=== PATIENT | male | born 1940 | race Caucasian/White ===

== ENCOUNTER 2024-10-25 10:15 | Inpatient (IN) | payer MEDICARE ==
--- NOTE | 2024-10-25 10:33 | ED ---
SOB HPI - General Chief Complaint: Shortness of Breath Stated Complaint: CHUCK,Dark stool Time Seen by Provider: 10/25/24 10:25 Source: patient, family, RN notes reviewed, old records reviewed Mode of arrival: wheelchair Limitations: no limitations - History of Present Illness Initial Comments: This is an 84-year-old male to ER for evaluation patient diagnosed with pneumonia concern for blood in the stool. Dark stools tarry stools with concern for coagulopathy. Patient does complain of shortness of breath with cough and congestion hypoxic on arrival to the emergency department today. Patient was accepted in transfer MD Complaint: shortness of breath, cough -: days(s) Severity: severe Severity scale (1-10): 9 Consistency: constant Improves With: nothing Worsens With: nothing Known History Of: COPD, congestive heart failure, recurrent pneumonia Context: recent URI, recent illness Associated Symptoms: chest pain, cough, sputum production Treatments Prior to Arrival: oxygen - Related Data Home Medications Medication Instructions Recorded Confirmed Amoxicillin 2,000 mg PO ONCE PRN 10/25/24 10/25/24 Atorvastatin [Lipitor] 20 mg PO SUMOTUTHFRSA 10/25/24 10/25/24 Colchicine 0.6 mg PO DAILY PRN 10/25/24 10/25/24 Hydrocortisone Cream 1 applic TOPICAL BID PRN 10/25/24 10/25/24 [Hydrocortisone 2.5% Cream] Ketoconazole 2% Cream [Nizoral 2%] 1 applic TOPICAL DAILY PRN 10/25/24 10/25/24 Multivit-Min/FA/Lycopen/Lutein 1 tab PO DIRECTED 10/25/24 10/25/24 [Centrum Silver Tablet] allopurinoL 300 mg PO DIRECTED 10/25/24 10/25/24 lisinopriL [Zestril] 5 mg PO DIRECTED PRN 10/25/24 10/25/24 Previous Rx's Medication Instructions Recorded Warfarin [Coumadin] 2.5 mg PO SUMOTUTHFRSA #0 10/29/24 Allergies Allergy/AdvReac Type Severity Reaction Status Date / Time No Known Allergies Allergy Verified 10/25/24 13:18 Review of Systems ROS Statement: Those systems with pertinent positive or pertinent negative responses have been documented in the HPI. ROS Other: All systems not noted in ROS Statement are negative. Past Medical History Past Psychological History: No Psychological Hx Reported Smoking Status: Former smoker Past Alcohol Use History: Occasional Past Drug Use History: None Reported General Exam Limitations: no limitations General appearance: alert, in no apparent distress Head exam: Present: atraumatic, normocephalic, normal inspection Eye exam: Present: normal appearance, PERRL, EOMI. Absent: scleral icterus, conjunctival injection, periorbital swelling ENT exam: Present: normal exam, mucous membranes moist Neck exam: Present: normal inspection. Absent: tenderness, meningismus, lymphadenopathy Respiratory exam: Present: normal lung sounds bilaterally. Absent: respiratory distress, wheezes, rales, rhonchi, stridor Cardiovascular Exam: Present: regular rate, normal rhythm, normal heart sounds. Absent: systolic murmur, diastolic murmur, rubs, gallop, clicks GI/Abdominal exam: Present: soft, normal bowel sounds. Absent: distended, tenderness, guarding, rebound, rigid Extremities exam: Present: normal inspection, full ROM, normal capillary refill. Absent: tenderness, pedal edema, joint swelling, calf tenderness Back exam: Present: normal inspection Neurological exam: Present: alert, oriented X3, CN II-XII intact Psychiatric exam: Present: normal affect, normal mood Skin exam: Present: warm, dry, intact, normal color. Absent: rash Course Vital Signs 10/25/24 10/25/24 10/25/24 10:18 10:35 12:00 Temperature 99.1 F Pulse Rate 118 H 90 Respiratory 20 20 18 Rate Blood Pressure 131/78 123/69 O2 Sat by Pulse 88 L 92 L Oximetry 10/25/24 10/25/24 10/25/24 12:43 12:52 13:39 Temperature Pulse Rate 80 84 84 Respiratory 18 Rate Blood Pressure 117/69 O2 Sat by Pulse 90 L Oximetry 10/25/24 10/25/24 10/25/24 16:00 16:49 16:57 Temperature Pulse Rate 64 62 64 Respiratory 20 Rate Blood Pressure 115/71 O2 Sat by Pulse 90 L Oximetry 10/25/24 10/25/24 10/25/24 17:00 18:00 20:00 Temperature Pulse Rate 71 95 65 Respiratory 22 21 20 Rate Blood Pressure 101/71 98/59 107/68 O2 Sat by Pulse 90 L 90 L 93 L Oximetry 10/25/24 10/25/24 10/25/24 20:48 20:59 21:00 Temperature Pulse Rate 62 77 80 Respiratory 19 Rate Blood Pressure 105/70 O2 Sat by Pulse 95 Oximetry 10/25/24 10/26/24 10/26/24 22:00 00:00 02:00 Temperature Pulse Rate 90 82 81 Respiratory 17 19 19 Rate Blood Pressure 99/64 100/71 100/71 O2 Sat by Pulse 90 L 92 L 92 L Oximetry 10/26/24 10/26/24 10/26/24 03:00 04:00 04:35 Temperature Pulse Rate 68 70 64 Respiratory 22 14 16 Rate Blood Pressure 94/68 110/74 120/66 O2 Sat by Pulse 92 L 87 L 95 Oximetry 10/26/24 10/26/24 10/26/24 05:00 05:52 06:00 Temperature Pulse Rate 63 63 67 Respiratory 16 16 15 Rate Blood Pressure 120/66 109/70 109/70 O2 Sat by Pulse 92 L 94 L 91 L Oximetry 10/26/24 10/26/24 10/26/24 06:52 07:00 08:00 Temperature 98.6 F Pulse Rate 68 82 64 Respiratory 16 10 L 19 Rate Blood Pressure 112/69 112/69 110/71 O2 Sat by Pulse 95 94 L 93 L Oximetry 10/26/24 10/26/24 10/26/24 08:33 08:39 08:45 Temperature Pulse Rate 72 71 76 Respiratory 16 14 16 Rate Blood Pressure 106/65 O2 Sat by Pulse 97 Oximetry 10/26/24 10/26/24 10/26/24 09:00 10:00 10:27 Temperature Pulse Rate 101 H 68 76 Respiratory 23 19 15 Rate Blood Pressure 106/65 103/70 110/64 O2 Sat by Pulse 90 L 92 L Oximetry 10/26/24 10/26/24 10/26/24 11:00 12:00 12:09 Temperature Pulse Rate 96 76 71 Respiratory 23 16 16 Rate Blood Pressure 110/64 132/89 O2 Sat by Pulse 93 L 92 L Oximetry 10/26/24 10/26/24 10/26/24 12:19 13:00 14:00 Temperature Pulse Rate 77 101 H 93 Respiratory 16 17 19 Rate Blood Pressure 104/64 108/70 O2 Sat by Pulse 91 L 93 L Oximetry 10/26/24 10/26/24 10/26/24 15:00 15:38 15:46 Temperature Pulse Rate 72 74 77 Respiratory 18 16 16 Rate Blood Pressure 91/70 O2 Sat by Pulse 94 L Oximetry 10/26/24 10/26/24 10/26/24 16:00 17:00 18:00 Temperature Pulse Rate 75 77 Respiratory 20 20 Rate Blood Pressure 105/62 118/79 111/66 O2 Sat by Pulse 92 L 95 Oximetry 10/26/24 10/26/24 10/26/24 20:03 20:17 20:45 Temperature Pulse Rate 69 90 90 Respiratory 20 Rate Blood Pressure 121/59 O2 Sat by Pulse 94 L Oximetry 10/27/24 10/27/24 10/27/24 01:30 06:29 08:48 Temperature 97.9 F Pulse Rate 100 97 93 Respiratory 18 18 16 Rate Blood Pressure 113/74 115/68 143/88 O2 Sat by Pulse 94 L 94 L 92 L Oximetry - Reevaluation(s) Reevaluation #1: Medical records reviewed Reevaluation #2: Patient symptoms unchanged here in the ER Reevaluation #3: Patient informed of results and questions answered Reevaluation #4: Was pt. sent in by a medical professional or institution (, PA, CHOIR TEACHER, urgent care, hospital, or custodial...) When possible be specific @ -no Did you speak to anyone other than the patient for history (EMS, parent, family, police, friend...)? What history was obtained from this source @ -no Did you review nursing and triage notes (agree or disagree)? Why? @ -agree Are old charts reviewed (outside hosp., previous admission, EMS record, old EKG, old radiological studies, urgent care reports/EKG's, custodial records)? Report findings @ -yes Differential Diagnosis (chest pain, altered mental status, abdominal pain women, abdominal pain men, vaginal bleeding, weakness, fever, dyspnea, syncope, headache, dizziness, GI bleed, back pain, seizure, CVA, palpatations, mental health, musculoskeletal)? @ -prior EKG interpreted by me (3pts min.). @ -yes X-rays interpreted by me (1pt min.). @ -yes positive for multifocal pneumonia CT interpreted by me (1pt min.). @ -no U/S interpreted by me (1pt. min.). @ -no What testing was considered but not performed or refused? (CT, X-rays, U/S, labs)? Why? @ -none What meds were considered but not given or refused? Why? @ -none Did you discuss the management of the patient with other professionals (professionals i.e. , PA, CHOIR TEACHER, lab, RT, psych nurse, medical social consultant, private investigator surveillance, teacher, chief security officer, caseworker)? Give summary @ -no Was smoking cessation discussed for >3mins.? @ -no Was critical care preformed (if so, how long)? @ -yes31 Were there social determinants of health that impacted care today? How? (Homelessness, low income, unemployed, alcoholism, drug addiction, transportation, low edu. Level, literacy, decrease access to med. care, alf, rehab)? @ -none Was there de-escalation of care discussed even if they declined (Discuss DNR or withdrawal of care, Hospice)? DNR status @ -no What co-morbidities impacted this encounter? (DM, HTN, Smoking, COPD, CAD, Cancer, CVA, ARF, Chemo, Hep., AIDS, mental health diagnosis, sleep apnea, morbid obesity)? @ -none Was patient admitted / discharged? Hospital course, mention meds given and route, prescriptions, significant lab abnormalities, going to OR and other pertinent info. @ - 84 female to ER with shortness of breath coagulopathy and suspect GI bleed patient has multifocal pneumonia and hypoxia here in the emergency department placed on antibiotics will admit for significant supportive care Admitted Undiagnosed new problem with uncertain prognosis? @ -no Drug Therapy requiring intensive monitoring for toxicity (Heparin, Nitro, Insulin, Cardizem)? @ -no Were any procedures done? @ -no Diagnosis/symptom? @ -Pneumonia hypoxia coagulopathy with blood in the stool Acute, or Chronic, or Acute on Chronic? @ -Acute Uncomplicated (without systemic symptoms) or Complicated (systemic symptoms)? @ -Complicated Side effects of treatment? @ -no Exacerbation, Progression, or Severe Exacerbation? @ -exacerbation Poses a threat to life or bodily function? How? (Chest pain, USA, MA, pneumonia, PE, COPD, DKA, ARF, appy, cholecystitis, CVA, Diverticulitis, Homicidal, Suicidal, threat to staff... and all critical care pts) @ -yes extremes of age Reevaluation #5: Differential Dyspnea: Coronary syndrome, arrhythmia, tamponade, asthma, COPD, pulmonary embolism, p neumonia, pneumothorax, pulmonary effusion, anaphylaxis, diabetic ketoacidosis, flailed chest, pulmonary contusion, diaphragmatic rupture, anemia, neuromuscular, this is not meant to be an all-inclusive list. - Consultations Consultation #1: Spoke with many physicians who agreed to admit this patient Medical Decision Making - Medical Decision Making 84 female to ER with shortness of breath coagulopathy and suspect GI bleed patient has multifocal pneumonia and hypoxia here in the emergency department placed on antibiotics will admit for significant supportive care - Lab Data Result diagrams: 10/29/24 06:15 10/29/24 06:15 Lab Results 10/25/24 10/25/24 10/25/24 Range/Units 10:47 10:47 10:47 WBC 9.9 (3.8-10.6) k/uL RBC 5.19 (4.30-5.90) m/uL Hgb 16.0 (13.0-17.5) gm/dL Hct 47.6 (39.0-53.0) % MCV 91.8 (80.0-100.0) fL MCH 30.8 (25.0-35.0) pg MCHC 33.6 (31.0-37.0) g/dL RDW 14.1 (11.5-15.5) % Plt Count 239 (150-450) k/uL MPV 8.8 Neutrophils % 90 % Lymphocytes % 5 % Monocytes % 4 % Eosinophils % 0 % Basophils % 0 % Neutrophils # 8.9 H (1.3-7.7) k/uL Lymphocytes # 0.5 L (1.0-4.8) k/uL Monocytes # 0.4 (0-1.0) k/uL Eosinophils # 0.0 (0-0.7) k/uL Basophils # 0.0 (0-0.2) k/uL PT >130.0 H (10.0-12.5) sec INR >10.0 H* (<1.2) APTT 68.5 H (22.0-30.0) sec Sodium 133 L (137-145) mmol/L Potassium 5.5 H (3.5-5.1) mmol/L Chloride 94 L (98-107) mmol/L Carbon Dioxide 21 L (22-30) mmol/L Anion Gap 18 mmol/L BUN 28 H (9-20) mg/dL Creatinine 1.79 H (0.66-1.25) mg/dL Est GFR (CKD-EPI)AfAm 40 (>60 ml/min/1.73 sqM) Est GFR (CKD-EPI)NonAf 35 (>60 ml/min/1.73 sqM) Glucose 186 H (74-99) mg/dL Lactic Ac Sepsis Rflx Plasma Lactic Acid Gil (0.7-2.0) mmol/L Calcium 9.7 (8.4-10.2) mg/dL Magnesium 2.2 (1.6-2.3) mg/dL Total Bilirubin 1.0 (0.2-1.3) mg/dL AST 83 H (17-59) U/L ALT 62 H (4-49) U/L Alkaline Phosphatase 104 (38-126) U/L Troponin I (0.000-0.034) ng/mL NT-Pro-B Natriuret Pep 1200 pg/mL Total Protein 9.1 H (6.3-8.2) g/dL Albumin 4.5 (3.5-5.0) g/dL Influenza Type A (PCR) (Not Detectd) Influenza Type B (PCR) (Not Detectd) RSV (PCR) (Not Detectd) SARS-CoV-2 (PCR) (Not Detectd) 10/25/24 10/25/24 10/25/24 Range/Units 10:47 10:47 11:39 WBC (3.8-10.6) k/uL RBC (4.30-5.90) m/uL Hgb (13.0-17.5) gm/dL Hct (39.0-53.0) % MCV (80.0-100.0) fL MCH (25.0-35.0) pg MCHC (31.0-37.0) g/dL RDW (11.5-15.5) % Plt Count (150-450) k/uL MPV Neutrophils % % Lymphocytes % % Monocytes % % Eosinophils % % Basophils % % Neutrophils # (1.3-7.7) k/uL Lymphocytes # (1.0-4.8) k/uL Monocytes # (0-1.0) k/uL Eosinophils # (0-0.7) k/uL Basophils # (0-0.2) k/uL PT (10.0-12.5) sec INR (<1.2) APTT (22.0-30.0) sec Sodium (137-145) mmol/L Potassium (3.5-5.1) mmol/L Chloride (98-107) mmol/L Carbon Dioxide (22-30) mmol/L Anion Gap mmol/L BUN (9-20) mg/dL Creatinine (0.66-1.25) mg/dL Est GFR (CKD-EPI)AfAm (>60 ml/min/1.73 sqM) Est GFR (CKD-EPI)NonAf (>60 ml/min/1.73 sqM) Glucose (74-99) mg/dL Lactic Ac Sepsis Rflx Plasma Lactic Acid Gil 3.2 H* (0.7-2.0) mmol/L Calcium (8.4-10.2) mg/dL Magnesium (1.6-2.3) mg/dL Total Bilirubin (0.2-1.3) mg/dL AST (17-59) U/L ALT (4-49) U/L Alkaline Phosphatase (38-126) U/L Troponin I 0.183 H* (0.000-0.034) ng/mL NT-Pro-B Natriuret Pep pg/mL Total Protein (6.3-8.2) g/dL Albumin (3.5-5.0) g/dL Influenza Type A (PCR) Not Detected (Not Detectd) Influenza Type B (PCR) Not Detected (Not Detectd) RSV (PCR) Not Detected (Not Detectd) SARS-CoV-2 (PCR) Not Detected (Not Detectd) 10/25/24 Range/Units 11:50 WBC (3.8-10.6) k/uL RBC (4.30-5.90) m/uL Hgb (13.0-17.5) gm/dL Hct (39.0-53.0) % MCV (80.0-100.0) fL MCH (25.0-35.0) pg MCHC (31.0-37.0) g/dL RDW (11.5-15.5) % Plt Count (150-450) k/uL MPV Neutrophils % % Lymphocytes % % Monocytes % % Eosinophils % % Basophils % % Neutrophils # (1.3-7.7) k/uL Lymphocytes # (1.0-4.8) k/uL Monocytes # (0-1.0) k/uL Eosinophils # (0-0.7) k/uL Basophils # (0-0.2) k/uL PT (10.0-12.5) sec INR (<1.2) APTT (22.0-30.0) sec Sodium (137-145) mmol/L Potassium (3.5-5.1) mmol/L Chloride (98-107) mmol/L Carbon Dioxide (22-30) mmol/L Anion Gap mmol/L BUN (9-20) mg/dL Creatinine (0.66-1.25) mg/dL Est GFR (CKD-EPI)AfAm (>60 ml/min/1.73 sqM) Est GFR (CKD-EPI)NonAf (>60 ml/min/1.73 sqM) Glucose (74-99) mg/dL Lactic Ac Sepsis Rflx Y Plasma Lactic Acid Gil (0.7-2.0) mmol/L Calcium (8.4-10.2) mg/dL Magnesium (1.6-2.3) mg/dL Total Bilirubin (0.2-1.3) mg/dL AST (17-59) U/L ALT (4-49) U/L Alkaline Phosphatase (38-126) U/L Troponin I (0.000-0.034) ng/mL NT-Pro-B Natriuret Pep pg/mL Total Protein (6.3-8.2) g/dL Albumin (3.5-5.0) g/dL Influenza Type A (PCR) (Not Detectd) Influenza Type B (PCR) (Not Detectd) RSV (PCR) (Not Detectd) SARS-CoV-2 (PCR) (Not Detectd) - EKG Data -: EKG Interpreted by Me (EKG is tachycardic 114 NV 69 QRS 134 QTc C3 93) - Radiology Data Radiology results: report reviewed (Chest x-ray is positive for bilateral pneumonia), image reviewed Critical Care Time Critical Care Time: Yes Total Critical Care Time: 31 Disposition Clinical Impression: Acute exacerbation of chronic obstructive pulmonary disease, Coagulopathy, GI bleed, Pneumonia, Hypoxia, Bilateral pneumonia, Acute respiratory distress syndrome in adult, Acute pulmonary edema Disposition: ADMITTED IP TO THIS HOSP Condition: Serious Is patient prescribed a controlled substance at d/c from ED?: No Time of Disposition: 12:20
[2024-10-25 11:07] LABS: Basophils % (A) 0 %; Eosinophils % (A) 0 %; HCT 47.6 % (39.0-53.0); Lymphocytes # (A) 0.5 k/uL (1.0-4.8); Lymphocytes % (A) 5 %; MCH 30.8 pg (25.0-35.0); MCHC 33.6 g/dL (31.0-37.0); MCV 91.8 fL (80.0-100.0); Mean Platelet Volume 8.8; Monocytes # (A) 0.4 k/uL (0-1.0); Monocytes % (A) 4 %; Neutrophils # (A) 8.9 k/uL (1.3-7.7); Neutrophils % (A) 90 %; Platelet Count 239 k/uL (150-450); RBC 5.19 m/uL (4.30-5.90); RDW 14.1 % (11.5-15.5); WBC 9.9 k/uL (3.8-10.6)
--- NOTE | 2024-10-25 11:07 | XR ---
EXAMINATION TYPE: XR chest 1V portable DATE OF EXAM: 10/25/2024 10:57 AM COMPARISON: None TECHNIQUE: XR chest 1V portable Portable AP radiograph of the chest. CLINICAL INDICATION:Male, 83 years old with history of sob; FINDINGS: Lungs/Pleura: No pleural effusion or pneumothorax. Bilateral perihilar reticular opacities. Pulmonary vascularity: Unremarkable. Heart/mediastinum: Cardiomediastinal silhouette is unremarkable. Atherosclerotic calcifications are seen in the aorta. Musculoskeletal: No acute osseous pathology. Bilateral shoulder arthropathy. IMPRESSION: Bilateral perihilar reticular opacities concerning for pneumonia. [facility], , 10/25/2024 11:05 AM
[2024-10-25 11:34] LABS: NT-Pro-B-Type Natriuretic Pept 1200 pg/mL
[2024-10-25 11:43] LABS: ALT 62 U/L (4-49); AST 83 U/L (17-59); African American GFR (CKD) 40 (>60 ml/min/1.73 sqM); Albumin 4.5 g/dL (3.5-5.0); Alkaline Phosphatase 104 U/L (38-126); Anion Gap 18 mmol/L; Blood Urea Nitrogen 28 mg/dL (9-20); Calcium 9.7 mg/dL (8.4-10.2); Carbon Dioxide 21 mmol/L (22-30); Chloride 94 mmol/L (98-107); Glucose 186 mg/dL (74-99); Magnesium 2.2 mg/dL (1.6-2.3); Non-African American GFR(CKD) 35 (>60 ml/min/1.73 sqM); Potassium 5.5 mmol/L (3.5-5.1); Sodium 133 mmol/L (137-145); Total Protein 9.1 g/dL (6.3-8.2)
[2024-10-25 12:04] LABS: Prothrombin Time >130.0 sec (10.0-12.5)
[2024-10-25 12:06] LABS: INR >10.0 (<1.2); Partial Thromboplastin Time 68.5 sec (22.0-30.0)
[2024-10-25] MEDS ORDERED: PNEUMONIA PROTOCOL UTILIZED 1 EACH MISC PO PRN (12:20)
[2024-10-25] MEDS ORDERED: MORPHINE SULFATE 4 MG/ML SYRINGE IV PRN (12:20)
[2024-10-25] MEDS ORDERED: ALBUTEROL NEBULIZED 2.5 MG/3 ML INHALATION PRN (12:20)
[2024-10-25] MEDS ORDERED: NALOXONE 0.4 MG/ML 1 ML VIAL IV PRN (12:20)
[2024-10-25] MEDS ORDERED: ONDANSETRON 4 MG/2 ML VIAL IVP PRN (12:20)
[2024-10-25] MEDS: IPRATROPIUM-ALBUTEROL 3 ML NEB INHALATION STA ×2 (12:40→16:47)
[2024-10-25] MEDS: SODIUM CHLORIDE 0.9% 1,000 ML IV SCH (12:51)
[2024-10-25 13:06] LABS: Basophils % (A) 0 %; Eosinophils % (A) 0 %; HCT 40.7 % (39.0-53.0); HGB 13.9 gm/dL (13.0-17.5); Lymphocytes # (A) 0.7 k/uL (1.0-4.8); Lymphocytes % (A) 6 %; MCH 31.2 pg (25.0-35.0); MCHC 34.1 g/dL (31.0-37.0); MCV 91.5 fL (80.0-100.0); Monocytes # (A) 0.3 k/uL (0-1.0); Monocytes % (A) 3 %; Neutrophils # (A) 10.1 k/uL (1.3-7.7); Neutrophils % (A) 89 %; Platelet Count 244 k/uL (150-450); RBC 4.45 m/uL (4.30-5.90); RDW 13.7 % (11.5-15.5); WBC 11.4 k/uL (3.8-10.6)
[2024-10-25] MEDS: AZITHROMYCIN 500 MG in SODIUM CHLORIDE 0.9% 250 ML IVPB STA (13:37)
[2024-10-25] MEDS: PHYTONADIONE ORAL 5 MG/5 ML ORAL.SYRG PO STA (15:16)
[2024-10-25] MEDS: IPRATROPIUM-ALBUTEROL 3 ML NEB INHALATION SCH (16:47)
[2024-10-26 06:29] LABS: Basophils % (A) 0 %; Eosinophils % (A) 0 %; HCT 39.4 % (39.0-53.0); HGB 12.9 gm/dL (13.0-17.5); Lymphocytes # (A) 0.8 k/uL (1.0-4.8); Lymphocytes % (A) 8 %; MCH 29.9 pg (25.0-35.0); MCHC 32.6 g/dL (31.0-37.0); MCV 91.7 fL (80.0-100.0); Mean Platelet Volume 7.8; Monocytes # (A) 0.3 k/uL (0-1.0); Monocytes % (A) 3 %; Neutrophils # (A) 8.8 k/uL (1.3-7.7); Neutrophils % (A) 87 %; Platelet Count 224 k/uL (150-450); RDW 13.9 % (11.5-15.5); WBC 10.1 k/uL (3.8-10.6)
[2024-10-26 06:53] LABS: ALT 65 U/L (4-49); AST 124 U/L (17-59); African American GFR (CKD) 70 (>60 ml/min/1.73 sqM); Albumin 3.1 g/dL (3.5-5.0); Alkaline Phosphatase 75 U/L (38-126); Anion Gap 11 mmol/L; Blood Urea Nitrogen 32 mg/dL (9-20); Calcium 8.4 mg/dL (8.4-10.2); Carbon Dioxide 24 mmol/L (22-30); Chloride 101 mmol/L (98-107); Glucose 123 mg/dL (74-99); Magnesium 2.4 mg/dL (1.6-2.3); Non-African American GFR(CKD) 60 (>60 ml/min/1.73 sqM); Phosphorus 4.4 mg/dL (2.5-4.5); Potassium 4.2 mmol/L (3.5-5.1); Sodium 136 mmol/L (137-145); Total Bilirubin 0.7 mg/dL (0.2-1.3); Total Protein 6.3 g/dL (6.3-8.2)
--- NOTE | 2024-10-26 07:50 | XR ---
EXAMINATION TYPE: XR chest 1V portable DATE OF EXAM: 10/26/2024 4:13 AM COMPARISON: 10/25/2024 CLINICAL INDICATION: Male, 83 years old with history of pneumonia, TECHNIQUE: XR chest 1V portable view(s) obtained. FINDINGS: The heart size is normal. The pulmonary vasculature is normal. Mild infiltrate is present through the left perihilar region. Findings appear slightly worsened. Millie elate for pneumonia. No significant change in the right perihilar appearance. Advanced degenerative changes are at the right shoulder IMPRESSION: 1. Worsening left perihilar infiltrate. Correlate for pneumonia. Continued follow-up is recommended [facility], , 10/26/2024 7:47 AM
[2024-10-26] MEDS: PANTOPRAZOLE 40 MG/10 ML VIAL IVP SCH (10:56)
[2024-10-26] MEDS: AZITHROMYCIN 500 MG in SODIUM CHLORIDE 0.9% 250 ML IVPB SCH (11:02)
[2024-10-26 11:29] LABS: INR 4.3 (<1.2); Prothrombin Time 42.3 sec (10.0-12.5)
--- NOTE | 2024-10-26 11:36 | P.CRDCN ---
History of Present Illness Consult date: 10/26/24 History of present illness: History of Present Illness: The patient is an 83-year-old male with a history of borderline hypertension who presented with diarrhea, black stool and symptoms of dyspnea. In the emergency room he was found to have an INR above 10, minimally elevated troponin and cardiology consultation was requested. He is usually active physically, has no exertional chest discomfort or significant dyspnea. He recently fell while shoveling snow and since that time he has been dyspneic with some symptoms of respiratory infection. For the last 3 days he noted black stool with diarrhea. He has been maintained on Coumadin for over 10 years. Initially he had DVT post knee surgery, was anticoagulated at that time but had recurrent DVT afterward and has been maintained on Coumadin, typically his INR is between 2 and 3 and has been stable. He has not taking any antibiotics recently. He has a history of hypertension but at times it is on the low side and does not require taking his lisinopril. He has no chest discomfort except after the fall, chest wall tenderness. He has no history of peripheral edema, PND or orthopnea. He denies any dizziness or palpitations. He has no history of documented obstructive CAD or CHF in the past. He is a non-smoker, stopped 22 years ago, he is prediabetic and hyperlipidemic. Medications: Lisinopril 5 mg daily, warfarin, atorvastatin 20 mg daily, colchicine Review of Systems: Respiratory: He had a recent dyspnea and cough GI: He has no abdominal pain or nausea and vomiting but he had black stool di arrhea : No hematuria or dysuria. Nervous System: No stroke or seizure. Physical Examination: 83-year-old male, alert oriented no apparent distress,Blood pressure 110/60, Heart rate 76 Head: Normocephalic. Eyes: Sclerae nonicteric. Neck: Good carotid upstroke, no bruit, no jugular venous distention. Lungs: Clear to auscultation. Heart: Regular rate and rhythm, S1-S2, no S3, no rub. No murmur. Abdomen: Soft nontender, positive bowel sounds no organomegaly. Extremities: No edema, intact distal pulses. Labs: On presentation INR above 10, potassium 5.5, BUN 28 and creatinine 1.79. Today his potassium is 4.2, BUN 32 and creatinine 1.14. His hemoglobin on admission was 16, down to 12.9 this morning. AST 124, ALT 65. His chest x-ray is suggestive of pneumonia with perihilar infiltrates. Troponin 0.183 with NT proBNP of 1200. EKG: Sinus mechanism with PACs, right bundle branch block Impression: 1. Probable pneumonia with abnormal chest x-ray. 2. Hypercoagulation 3. GI bleed 4. Acute renal injury, resolved. 5. Mild troponin elevation could be related to the acute renal injury and pneumonia 6. Prior history of DVT, anticoagulated 7. History of hyperlipidemia 8. History of hypertension Plan: 1. The patient received vitamin K, will follow his INR 2. Follow hemoglobin and renal function closely 3. Obtain an echocardiogram with Doppler 4. Repeat liver functions tomorrow and if stable reinitiate statin 5. Treatment of his lung infection per pulmonary service 6. Once stable may require further cardiac workup 7. Depending on his progress further recommendations will be made, thank you for this consult we will follow with you. Past Medical History Past Psychological History: No Psychological Hx Reported Smoking Status: Former smoker Past Alcohol Use History: Occasional Past Drug Use History: None Reported Medications and Allergies Home Medications Medication Instructions Recorded Confirmed Type Amoxicillin 2,000 mg PO ONCE PRN 10/25/24 10/25/24 History Atorvastatin [Lipitor] 20 mg PO SUMOTUTHFRSA 10/25/24 10/25/24 History Colchicine 0.6 mg PO DAILY PRN 10/25/24 10/25/24 History Hydrocortisone Cream 1 applic TOPICAL BID PRN 10/25/24 10/25/24 History [Hydrocortisone 2.5% Cream] Ketoconazole 2% Cream [Nizoral 2%] 1 applic TOPICAL DAILY PRN 10/25/24 10/25/24 History Multivit-Min/FA/Lycopen/Lutein 1 tab PO DIRECTED 10/25/24 10/25/24 History [Centrum Silver Tablet] Warfarin [Coumadin] 2.5 mg PO SUMOTUTHFRSA 10/25/24 10/25/24 History allopurinoL 300 mg PO DIRECTED 10/25/24 10/25/24 History lisinopriL [Zestril] 5 mg PO DIRECTED PRN 10/25/24 10/25/24 History Allergies Allergy/AdvReac Type Severity Reaction Status Date / Time No Known Allergies Allergy Verified 10/25/24 13:18 Physical Exam Vitals: Vital Signs Temp Pulse Resp BP Pulse Ox 10/26/24 10:27 76 15 110/64 10/26/24 08:45 76 16 10/26/24 08:39 71 14 106/65 10/26/24 08:33 72 16 97 10/26/24 06:52 98.6 F 68 16 112/69 95 10/26/24 05:52 63 16 109/70 94 L 10/26/24 04:35 64 16 120/66 95 10/26/24 00:00 82 19 100/71 92 L 10/25/24 22:00 90 17 99/64 90 L 10/25/24 21:00 80 19 105/70 95 10/25/24 20:59 77 10/25/24 20:48 62 10/25/24 20:00 65 20 107/68 93 L 10/25/24 18:00 95 21 98/59 90 L 10/25/24 17:00 71 22 101/71 90 L 10/25/24 16:57 64 10/25/24 16:49 62 10/25/24 16:00 64 20 115/71 90 L 10/25/24 13:39 84 18 117/69 90 L 10/25/24 12:52 84 10/25/24 12:43 80 10/25/24 12:00 90 18 123/69 92 L Results 10/26/24 06:10 10/26/24 06:10 Cardiac Enzymes 10/25/24 10/25/24 10/26/24 Range/Units 10:47 10:47 06:10 AST 83 H 124 H (17-59) U/L Troponin I 0.183 H* (0.000-0.034) ng/mL Coagulation 10/25/24 Range/Units 10:47 PT >130.0 H (10.0-12.5) sec APTT 68.5 H (22.0-30.0) sec CBC 10/25/24 10/26/24 Range/Units 12:56 06:10 WBC 11.4 H 10.1 (3.8-10.6) k/uL RBC 4.45 4.30 (4.30-5.90) m/uL Hgb 13.9 12.9 L (13.0-17.5) gm/dL Hct 40.7 39.4 (39.0-53.0) % Plt Count 244 224 (150-450) k/uL Comprehensive Metabolic Panel 10/25/24 10/26/24 Range/Units 10:47 06:10 Sodium 133 L 136 L (137-145) mmol/L Potassium 5.5 H 4.2 (3.5-5.1) mmol/L Chloride 94 L 101 (98-107) mmol/L Carbon Dioxide 21 L 24 (22-30) mmol/L BUN 28 H 32 H (9-20) mg/dL Creatinine 1.79 H 1.14 (0.66-1.25) mg/dL Glucose 186 H 123 H (74-99) mg/dL Calcium 9.7 8.4 (8.4-10.2) mg/dL AST 83 H 124 H (17-59) U/L ALT 62 H 65 H (4-49) U/L Alkaline Phosphatase 104 75 (38-126) U/L Total Protein 9.1 H 6.3 (6.3-8.2) g/dL Albumin 4.5 3.1 L (3.5-5.0) g/dL Current Medications Generic Name Dose Route Start Last Admin Trade Name Freq PRN Reason Stop Dose Admin Albuterol Sulfate 2.5 mg 10/25/24 12:20 Albuterol Nebulized 2.5 Mg/3 Ml INHALATION RT-Q4H PRN Shortness Of Breath Or Wheezing Albuterol/Ipratropium 3 ml 10/25/24 16:00 10/26/24 08:33 Ipratropium-Albuterol 3 Ml Neb INHALATION 3 ml RT-QID HUAN Administration Sodium Chloride 1,000 mls @ 20 mls/hr 10/25/24 12:30 10/25/24 12:51 Saline 0.9% IV 20 mls/hr .Q24H HUAN Administration Ceftriaxone Sodium 2 gm/ 50 mls @ 100 mls/hr 10/26/24 09:00 10/26/24 08:37 Sodium Chloride IVPB 10/29/24 09:29 100 mls/hr Q24HR HUAN Administration Protocol Azithromycin 500 mg/ Sodium 250 mls @ 250 mls/hr 10/26/24 12:00 10/26/24 11:02 Chloride IVPB 10/27/24 12:59 250 mls/hr DAILY@1200 HUAN Administration Protocol Miscellaneous Information 1 each 10/25/24 12:20 Pneumonia Protocol Utilized 1 Each Misc PO ONCE PRN Per Protocol Morphine Sulfate 4 mg 10/25/24 12:20 Morphine Sulfate 4 Mg/Ml Syringe IV Q4HR PRN Severe Pain (Scale 7 to 10) Naloxone HCl 0.2 mg 10/25/24 12:20 Naloxone 0.4 Mg/Ml 1 Ml Vial IV Q2M PRN Opioid Reversal Ondansetron HCl 4 mg 10/25/24 12:20 Ondansetron 4 Mg/2 Ml Vial IVP Q8HR PRN Nausea And Vomiting Pantoprazole Sodium 40 mg 10/26/24 10:45 10/26/24 10:56 Pantoprazole 40 Mg/10 Ml Vial IVP 40 mg DAILY HUAN Administration 10/26/24 06:10 10/26/24 06:10
--- NOTE | 2024-10-26 15:12 | P.HPIM ---
History of Present Illness H&P Date: 10/26/24 History of present illness; patient 83-year-old gentleman with past medical history significant for hyperlipidemia, COPD, right lower extremity DVT who presented to ER for shortness of breath and dark stools. Patient stated he was all right couple of days back when started noticing increasing shortness of breath. Shortness of breath was present on rest as on exertion. Patient also complaining of dark stools, there was no complaint of nausea vomiting abdominal pain. There is no acute hematemesis. Patient currently takes Coumadin. Because of shortness of breath, patient went to urgent care from where he was referred to the ER Initial lab work done in the ER showed WBC 9.9, hemoglobin 16, platelet count 239, INR greater than 10, sodium 133, potassium 5.5, BUN 20, creatinine 1.79 lactate 3.2 troponin 0.183 AST 83 ALT 62 Influenza A not detected Influenza B not detected RSV not detected COVID-19 not detected EKG done in the ER showed heart rate of 114, no ST segment elevation or depre ssion seen, no T-wave inversions seen. Chest x-ray done in the ER showed bilateral perihilar reticular opacities concerning for pneumonia Patient admitted to internal medicine service REVIEW OF SYSTEMS: CONSTITUTIONAL: No fever, no malaise, no fatigue. HEENT: No recent visual problems or hearing problems. Denied any sore throat. CARDIOVASCULAR: As mentioned above PULMONARY: As mentioned above GASTROINTESTINAL: No diarrhea, no nausea, no vomiting, no abdominal pain. NEUROLOGICAL: No headaches, no weakness, no numbness. HEMATOLOGICAL: Denies any bleeding or petechiae. GENITOURINARY: Denies any burning micturition, frequency, or urgency. MUSCULOSKELETAL/RHEUMATOLOGICAL: Denies any joint pain, swelling, or any muscle pain. ENDOCRINE: Denies any polyuria or polydipsia. The rest of the 14-point review of systems is negative. PHYSICAL EXAMINATION: GENERAL: The patient is alert and oriented x3, not in any acute distress. Well developed, well nourished. HEENT: Pupils are round and equally reacting to light. EOMI. No scleral icterus. No conjunctival pallor. Normocephalic, atraumatic. No pharyngeal erythema. No thyromegaly. CARDIOVASCULAR: S1 and S2 present. No murmurs, rubs, or gallops. PULMONARY: Chest is clear to auscultation, no wheezing or crackles. ABDOMEN: Soft, nontender, nondistended, normoactive bowel sounds. No palpable organomegaly. MUSCULOSKELETAL: No joint swelling or deformity. EXTREMITIES: No cyanosis, clubbing, or pedal edema. NEUROLOGICAL: Gross neurological examination did not reveal any focal deficits. SKIN: No rashes. Assessment and plan Bacterial pneumonia Acute COPD exacerbation Supratherapeutic INR GI bleed Hyponatremia Hyperkalemia Acute kidney injury Elevated troponin History of right lower extremity DVT Monitor vital signs Monitor CBC Monitor CMP Continue telemetry monitoring Serial troponin Strict I's and O's, daily weights Serial INRs patient received vitamin K in the ER. Ordered anemia workup Ordered FOBT Start IV Rocephin and azithromycin Start IV Protonix Consult cardiology Consult pulmonology Consult surgery. Labs and medication were reviewed.. Continue same treatment. Continue with symptomatic treatment. Resume home medication. Monitor labs and vitals. DVT and GI prophylaxis. Further recommendations as per clinical course of the patient Dictation was produced using [employer] dictation software. please excuse any grammatical, word or spelling errors. Past Medical History Past Psychological History: No Psychological Hx Reported Smoking Status: Former smoker Past Alcohol Use History: Occasional Past Drug Use History: None Reported Medications and Allergies Home Medications Medication Instructions Recorded Confirmed Type Amoxicillin 2,000 mg PO ONCE PRN 10/25/24 10/25/24 History Atorvastatin [Lipitor] 20 mg PO SUMOTUTHFR10/25/24 10/25/24 History Colchicine 0.6 mg PO DAILY PRN 10/25/24 10/25/24 History Hydrocortisone Cream 1 applic TOPICAL BID PRN 10/25/24 10/25/24 History [Hydrocortisone 2.5% Cream] Ketoconazole 2% Cream [Nizoral 2%] 1 applic TOPICAL DAILY PRN 10/25/24 10/25/24 History Multivit-Min/FA/Lycopen/Lutein 1 tab PO DIRECTED 10/25/24 10/25/24 History [Centrum Silver Tablet] Warfarin [Coumadin] 2.5 mg PO SUMOTUTHFRSA 10/25/24 10/25/24 History allopurinoL 300 mg PO DIRECTED 10/25/24 10/25/24 History lisinopriL [Zestril] 5 mg PO DIRECTED PRN 10/25/24 10/25/24 History Allergies Allergy/AdvReac Type Severity Reaction Status Date / Time No Known Allergies Allergy Verified 10/25/24 13:18 Physical Exam Vitals: Vital Signs Temp Pulse Resp BP Pulse Ox 10/26/24 10:27 76 15 110/64 10/26/24 08:45 76 16 10/26/24 08:39 71 14 106/65 10/26/24 08:33 72 16 97 10/26/24 06:52 98.6 F 68 16 112/69 95 10/26/24 05:52 63 16 109/70 94 L 10/26/24 04:35 64 16 120/66 95 10/26/24 00:00 82 19 100/71 92 L 10/25/24 22:00 90 17 99/64 90 L 10/25/24 21:00 80 19 105/70 95 10/25/24 20:59 77 10/25/24 20:48 62 10/25/24 20:00 65 20 107/68 93 L 10/25/24 18:00 95 21 98/59 90 L 10/25/24 17:00 71 22 101/71 90 L 10/25/24 16:57 64 10/25/24 16:49 62 10/25/24 16:00 64 20 115/71 90 L 10/25/24 13:39 84 18 117/69 90 L 10/25/24 12:52 84 10/25/24 12:43 80 10/25/24 12:00 90 18 123/69 92 L 10/25/24 10:35 20 Results CBC & Chem 7: 10/26/24 06:10 10/26/24 06:10 Labs: Abnormal Lab Results - Last 24 Hours (Table) 10/25/24 10/25/24 10/25/24 Range/Units 10:47 10:47 10:47 WBC (3.8-10.6) k/uL Hgb (13.0-17.5) gm/dL Neutrophils # 8.9 H (1.3-7.7) k/uL Lymphocytes # 0.5 L (1.0-4.8) k/uL PT >130.0 H (10.0-12.5) sec INR >10.0 H* (<1.2) APTT 68.5 H (22.0-30.0) sec Sodium 133 L (137-145) mmol/L Potassium 5.5 H (3.5-5.1) mmol/L Chloride 94 L (98-107) mmol/L Carbon Dioxide 21 L (22-30) mmol/L BUN 28 H (9-20) mg/dL Creatinine 1.79 H (0.66-1.25) mg/dL Glucose 186 H (74-99) mg/dL Plasma Lactic Acid Gil (0.7-2.0) mmol/L Magnesium (1.6-2.3) mg/dL AST 83 H (17-59) U/L ALT 62 H (4-49) U/L Troponin I (0.000-0.034) ng/mL Total Protein 9.1 H (6.3-8.2) g/dL Albumin (3.5-5.0) g/dL 10/25/24 10/25/24 10/25/24 Range/Units 10:47 10:47 12:56 WBC 11.4 H (3.8-10.6) k/uL Hgb (13.0-17.5) gm/dL Neutrophils # 10.1 H (1.3-7.7) k/uL Lymphocytes # 0.7 L (1.0-4.8) k/uL PT (10.0-12.5) sec INR (<1.2) APTT (22.0-30.0) sec Sodium (137-145) mmol/L Potassium (3.5-5.1) mmol/L Chloride (98-107) mmol/L Carbon Dioxide (22-30) mmol/L BUN (9-20) mg/dL Creatinine (0.66-1.25) mg/dL Glucose (74-99) mg/dL Plasma Lactic Acid Gil 3.2 H* (0.7-2.0) mmol/L Magnesium (1.6-2.3) mg/dL AST (17-59) U/L ALT (4-49) U/L Troponin I 0.183 H* (0.000-0.034) ng/mL Total Protein (6.3-8.2) g/dL Albumin (3.5-5.0) g/dL 12/31/24 12/31/24 Range/Units 06:10 06:10 WBC (3.8-10.6) k/uL Hgb 12.9 L (13.0-17.5) gm/dL Neutrophils # 8.8 H (1.3-7.7) k/uL Lymphocytes # 0.8 L (1.0-4.8) k/uL PT (10.0-12.5) sec INR (<1.2) APTT (22.0-30.0) sec Sodium 136 L (137-145) mmol/L Potassium (3.5-5.1) mmol/L Chloride (98-107) mmol/L Carbon Dioxide (22-30) mmol/L BUN 32 H (9-20) mg/dL Creatinine (0.66-1.25) mg/dL Glucose 123 H (74-99) mg/dL Plasma Lactic Acid Gil (0.7-2.0) mmol/L Magnesium 2.4 H (1.6-2.3) mg/dL AST 124 H (17-59) U/L ALT 65 H (4-49) U/L Troponin I (0.000-0.034) ng/mL Total Protein (6.3-8.2) g/dL Albumin 3.1 L (3.5-5.0) g/dL
--- NOTE | 2024-10-26 17:22 | P.CNPUL ---
History of Present Illness Consult date: 10/26/24 Requesting physician: Guero Sears Reason for consult: dyspnea, abnormal CXR/CT Chief complaint: General Weakness, congestion, diarrhea History of present illness: This is an 83-year-old male patient with a known history of hypertension, gout, hyperlipidemia, former smoker, right lower extremity DVT x 2 and maintained on warfarin. He presented here to the emergency room yesterday with complaints of shortness of breath and black liquidy stool. He had also developed generalized weakness. X-ray lateral perihilar reticular opacities. EKG reveals sinus rhythm with frequent PACs and a right bundle branch block. White count 10.1. Hemoglobin 12.9. Platelets 224. Sodium 136. Potassium 4.2. Bicarb 24. BUN 32. Creatinine 1.14. Glucose 123. AST 124. ALT 65. Troponin 0.200, 0.194. Procalcitonin 1.27. C-reactive protein 26.6. proBNP 1200. Viral screen negative. He is seen today in consultation in the emergency department. He is currently resting on a stretcher. Awake and alert in no acute distress. Maintaining O2 saturations in the 90s on 2 L/min per nasal cannula. He has been afebrile. Hemodynamically stable. Patient's presenting INR was greater than 10. He did receive vitamin K. Current INR 4.3. Review of Systems REVIEW OF SYSTEMS: CONSTITUTIONAL: Positive for generalized weakness. Denies any recent significant weight loss or weight gain. EYES: Denies change in vision. EARS, NOSE, MOUTH, THROAT: Denies headaches, denies sore throat. CARDIOVASCULAR: Denies chest pain, palpitations or syncopal episodes. RESPIRATORY: Positive for shortness of breath, no cough, congestion or hemoptysis. GASTROINTESTINAL: Positive for diarrhea with dark stool GENITOURINARY: Denies hematuria, denies infections. MUSKULOSKELETAL: Denies pain, denies swelling. INTEGUMENTARY: Denies rash, denies eczema. NEUROLOGICAL: Denies recent memory loss, no recent seizure activity. PSYCHIATRIC: Denies anxiety, denies depression. HEMATOLOGIC/LYMPHATIC: Denies anemia, denies enlarged lymph nodes. Past Medical History Past Psychological History: No Psychological Hx Reported Smoking Status: Former smoker Past Alcohol Use History: Occasional Past Drug Use History: None Reported Medications and Allergies Home Medications Medication Instructions Recorded Confirmed Type Amoxicillin 2,000 mg PO ONCE PRN 12/30/24 12/30/24 History Atorvastatin [Lipitor] 20 mg PO SUMOTUTHFRSA 10/25/24 10/25/24 History Colchicine 0.6 mg PO DAILY PRN 10/25/24 10/25/24 History Hydrocortisone Cream 1 applic TOPICAL BID PRN 10/25/24 10/25/24 History [Hydrocortisone 2.5% Cream] Ketoconazole 2% Cream [Nizoral 2%] 1 applic TOPICAL DAILY PRN 10/25/24 10/25/24 History Multivit-Min/FA/Lycopen/Lutein 1 tab PO DIRECTED 10/25/24 10/25/24 History [Centrum Silver Tablet] Warfarin [Coumadin] 2.5 mg PO SUMOTUTHFRSA 10/25/24 10/25/24 History allopurinoL 300 mg PO DIRECTED 10/25/24 10/25/24 History lisinopriL [Zestril] 5 mg PO DIRECTED PRN 10/25/24 10/25/24 History Allergies Allergy/AdvReac Type Severity Reaction Status Date / Time No Known Allergies Allergy Verified 10/25/24 13:18 Physical Exam Vitals: Vital Signs Temp Pulse Resp BP Pulse Ox 10/26/24 15:46 77 16 10/26/24 15:38 74 16 10/26/24 12:19 77 16 10/26/24 12:09 71 16 10/26/24 10:27 76 15 110/64 10/26/24 08:45 76 16 10/26/24 08:39 71 14 106/65 10/26/24 08:33 72 16 97 10/26/24 06:52 98.6 F 68 16 112/69 95 10/26/24 05:52 63 16 109/70 94 L 10/26/24 04:35 64 16 120/66 95 10/26/24 00:00 82 19 100/71 92 L 10/25/24 22:00 90 17 99/64 90 L 10/25/24 21:00 80 19 105/70 95 10/25/24 20:59 77 10/25/24 20:48 62 10/25/24 20:00 65 20 107/68 93 L 10/25/24 18:00 95 21 98/59 90 L GENERAL EXAM: Alert, pleasant 83-year-old male patient, on 2 L nasal cannula, fairly comfortable in no apparent distress. HEAD: Normocephalic. EYES: Normal reaction of pupils, equal size. NOSE: Clear with pink turbinates. THROAT: No erythema or exudates. NECK: No masses, no JVD. CHEST: No chest wall deformity. LUNGS: Equal air entry with few scattered rhonchi. CVS: S1 and S2 normal with no audible murmur, regular rhythm. ABDOMEN: No hepatosplenomegaly, normal bowel sounds, no guarding or rigidity. SPINE: No scoliosis or deformity SKIN: No rashes CENTRAL NERVOUS SYSTEM: No focal deficits, tone is normal in all 4 extremities. EXTREMITIES: There is no peripheral edema. No clubbing, no cyanosis. Peripheral pulses are intact. Results - Laboratory Findings CBC and BMP: 10/26/24 06:10 10/26/24 06:10 PT/INR, D-dimer PT 42.3 sec (10.0-12.5) H 10/26/24 11:00 INR 4.3 (<1.2) H 10/26/24 11:00 Abnormal lab findings: Abnormal Labs 10/25/24 10/25/24 10/25/24 10:47 10:47 10:47 WBC Hgb Neutrophils # 8.9 H Lymphocytes # 0.5 L ESR PT >130.0 H INR >10.0 H* APTT 68.5 H Sodium 133 L Potassium 5.5 H Chloride 94 L Carbon Dioxide 21 L BUN 28 H Creatinine 1.79 H Glucose 186 H Plasma Lactic Acid Gil Magnesium AST 83 H ALT 62 H Troponin I C-Reactive Protein Total Protein 9.1 H Albumin Procalcitonin 10/25/24 10/25/24 10/25/24 10:47 10:47 12:56 WBC 11.4 H Hgb Neutrophils # 10.1 H Lymphocytes # 0.7 L ESR PT INR APTT Sodium Potassium Chloride Carbon Dioxide BUN Creatinine Glucose Plasma Lactic Acid Gil 3.2 H* Magnesium AST ALT Troponin I 0.183 H* C-Reactive Protein Total Protein Albumin Procalcitonin 10/26/24 10/26/24 10/26/24 06:10 06:10 11:00 WBC Hgb 12.9 L Neutrophils # 8.8 H Lymphocytes # 0.8 L ESR PT 42.3 H INR 4.3 H APTT Sodium 136 L Potassium Chloride Carbon Dioxide BUN 32 H Creatinine Glucose 123 H Plasma Lactic Acid Gil Magnesium 2.4 H AST 124 H ALT 65 H Troponin I C-Reactive Protein Total Protein Albumin 3.1 L Procalcitonin 10/26/24 10/26/24 10/26/24 11:00 11:00 11:00 WBC Hgb Neutrophils # Lymphocytes # ESR 81 H PT INR APTT Sodium Potassium Chloride Carbon Dioxide BUN Creatinine Glucose Plasma Lactic Acid Gil Magnesium AST ALT Troponin I C-Reactive Protein 26.6 H Total Protein Albumin Procalcitonin 1.27 H 10/26/24 10/26/24 11:00 14:17 WBC Hgb Neutrophils # Lymphocytes # ESR PT INR APTT Sodium Potassium Chloride Carbon Dioxide BUN Creatinine Glucose Plasma Lactic Acid Gil Magnesium AST ALT Troponin I 0.200 H* 0.194 H* C-Reactive Protein Total Protein Albumin Procalcitonin - Diagnostic Findings Chest x-ray: image reviewed Assessment and Plan Assessment: Acute hypoxic respiratory failure secondary to suspected community-acquired pneumonia. Procalcitonin 1.27. 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 Number of minutes spent on the visit: 20 Dictation was produced using [employer] dictation software. Please excuse any grammatical, word or spelling errors. This patient was seen in coordination with the pulmonary/critical care physician, Dr. Chahal. He did spend greater than 50% of the time evaluating, examining and developing the plan of care. He agrees to the above HPI, physical exam, assessment and plan of care as dictated by the nurse practitioner.
--- NOTE | 2024-10-26 17:56 | CA ---
Transthoracic Echo Report Name: David Duncan Age: 83 Gender: M : 1940 Exam Date: 10/26/2024 14:24 Exam Location: [facility] Ht (in): 67.5 Wt (lb): 175 Ordering Physician: Vineet Pinto MD ([id number]) Attending/Referring Phys: [employer] Material Handling Supervisor Gina Lazo RDCS Procedure CPT: Indications: elevated troponin Cardiac Hx: Technical Quality: Good Contrast 1: Total Dose (mL): Contrast 2: Total Dose (mL): MEASUREMENTS (Male / Female) Normal Values 2D ECHO LV Diastolic Diameter PLAX 4.1 cm 4.2 - 5.9 / 3.9 - 5.3 cm LV Systolic Diameter PLAX 3.1 cm IVS Diastolic Thickness 1.6 cm 0.6 - 1.0 / 0.6 - 0.9 cm LVPW Diastolic Thickness 1.2 cm 0.6 - 1.0 / 0.6 - 0.9 cm LV Relative Wall Thickness 0.7 RV Internal Dim ED PLAX 3.5 cm LA Systolic Diameter LX 3.5 cm 3.0 - 4.0 / 2.7 - 3.8 cm LV Diastolic Volume MOD BP 88.3 cm??? 67 - 155 / 56 - 104 cm??? LV Systolic Volume MOD BP 43.4 cm??? 22 - 58 / 19 - 49 cm??? LV Ejection Fraction MOD BP 50.8 % >= 55 % LV Cardiac Index MOD BP 2286.9 cm???/min???m??? LV Diastolic Volume MOD 4C 89.8 cm??? LV Systolic Volume MOD 4C 44.9 cm??? LV Ejection Fraction MOD 4C 50.0 % LV Cardiac Index MOD 4C 2291.0 cm???/min???m??? LV Diastolic Length 4C 8.2 cm LV Systolic Length 4C 7.3 cm LV Diastolic Volume MOD 2C 88.2 cm??? LV Systolic Volume MOD 2C 47.2 cm??? LV Ejection Fraction MOD 2C 46.5 % LV Cardiac Index MOD 2C 2091.5 cm???/min???m??? LV Diastolic Length 2C 8.3 cm LV Systolic Length 2C 7.1 cm LA Volume 43.3 cm??? 18 - 58 / 22 - 52 cm??? LA Volume Index 22.1 cm???/m??? 16 - 28 cm???/m??? M-MODE Aortic Root Diameter MM 3.7 cm AV Cusp Separation MM 2.1 cm DOPPLER AV Peak Velocity 184.0 cm/s AV Peak Gradient 13.5 mmHg MV Area PHT 2.8 cm??? Mitral E Point Velocity 70.8 cm/s Mitral A Point Velocity 102.3 cm/s Mitral E to A Ratio 0.7 MV Deceleration Time 268.0 ms TR Peak Velocity 294.8 cm/s TR Peak Gradient 34.8 mmHg Right Ventricular Systolic Press 39.8 mmHg FINDINGS Left Ventricle Left ventricular ejection fraction is estimated at 50 %. Left ventricular cavity size normal. Moderately increased septal wall thickness. Mildly decreased left ventricular ejection fraction. Right Ventricle Mild right ventricular dilatation. Mild pulmonary hypertension. Right Atrium Normal right atrial size. No right atrial thrombus or mass seen. Left Atrium Normal left atrial size. No left atrial thrombus or mass present. Mitral Valve Mitral valve thickened. Mild mitral annular calcification. Trace to mild mitral regurgitation. Aortic Valve Trileaflet aortic valve. No aortic valve stenosis or regurgitation. Thickened aortic valve without stenosis. Tricuspid Valve Structurally normal tricuspid valve. Trace to mild tricuspid regurgitation. Pulmonic Valve Structurally normal pulmonic valve. Trace pulmonic regurgitation. Pericardium No pericardial or pleural effusion. Aorta Normal size aortic root and proximal ascending aorta. CONCLUSIONS Low normal LV systolic function with EF at 50% Mild pulmonary hypertension No pericardial effusion Previewed by: Dr. Isac Sanz MD (Electronically Signed) Final Date: 26 October 2024 17:55
--- NOTE | 2024-10-27 10:59 | P.GSCN ---
History of Present Illness Consult date: 10/27/24 Reason for Consult: GI bleed History of present illness: 73-year-old male who was admitted to the hospital with elevated INR of 10. Patient did have some black tarry stools. Patient denied any active GI bleed. Patient states his stools have become less black this morning. He denies any abdominal pain. Past Medical History Past Medical History: Cancer, Diabetes Mellitus, Deep Vein Thrombosis (DVT), Hyperlipidemia, Hypertension, Pneumonia Additional Past Medical History / Comment(s): shingles, skin cancer, pre- diabetes History of Any Multi-Drug Resistant Organisms: None Reported Past Surgical History: Orthopedic Surgery Additional Past Surgical History / Comment(s): "bilateral hip replacement, skin cancer surgery and arthroscopic surgery on left" Past Anesthesia/Blood Transfusion Reactions: Unable to Obtain Past Psychological History: No Psychological Hx Reported Smoking Status: Former smoker Past Alcohol Use History: Occasional Past Drug Use History: None Reported Medications and Allergies Home Medications Medication Instructions Recorded Confirmed Type Amoxicillin 2,000 mg PO ONCE PRN 10/25/24 10/25/24 History Atorvastatin [Lipitor] 20 mg PO SUMOTUTHFRSA 10/25/24 10/25/24 History Colchicine 0.6 mg PO DAILY PRN 10/25/24 10/25/24 History Hydrocortisone Cream 1 applic TOPICAL BID PRN 10/25/24 10/25/24 History [Hydrocortisone 2.5% Cream] Ketoconazole 2% Cream [Nizoral 2%] 1 applic TOPICAL DAILY PRN 10/25/24 10/25/24 History Multivit-Min/FA/Lycopen/Lutein 1 tab PO DIRECTED 10/25/24 10/25/24 History [Centrum Silver Tablet] Warfarin [Coumadin] 2.5 mg PO SUMOTUTHFRSA 10/25/24 10/25/24 History allopurinoL 300 mg PO DIRECTED 10/25/24 10/25/24 History lisinopriL [Zestril] 5 mg PO DIRECTED PRN 10/25/24 10/25/24 History Allergies Allergy/AdvReac Type Severity Reaction Status Date / Time No Known Allergies Allergy Verified 10/25/24 13:18 Surgical - Exam Vital Signs Temp Pulse Resp BP Pulse Ox 99.1 F 118 H 20 131/78 88 L 10/25/24 10:18 10/25/24 10:18 10/25/24 10:18 10/25/24 10:18 10/25/24 10:18 - General well developed, well nourished, no distress - Eyes PERRL - ENT normal pinna - Abdomen Abdomen: soft, non tender Results - Labs 10/26/24 06:10 10/26/24 06:10 Abnormal Lab Results - Last 24 Hours (Table) 10/26/24 10/26/24 10/26/24 Range/Units 11:00 11:00 11:00 ESR 81 H (0-20) mm/Hr PT 42.3 H (10.0-12.5) sec INR 4.3 H (<1.2) Troponin I (0.000-0.034) ng/mL C-Reactive Protein 26.6 H (<1.0) mg/dL Procalcitonin (0.02-0.50) ng/mL 10/26/24 10/26/24 10/26/24 Range/Units 11:00 11:00 14:17 ESR (0-20) mm/Hr PT (10.0-12.5) sec INR (<1.2) Troponin I 0.200 H* 0.194 H* (0.000-0.034) ng/mL C-Reactive Protein (<1.0) mg/dL Procalcitonin 1.27 H (0.02-0.50) ng/mL 10/26/24 Range/Units 17:09 ESR (0-20) mm/Hr PT (10.0-12.5) sec INR (<1.2) Troponin I 0.179 H* (0.000-0.034) ng/mL C-Reactive Protein (<1.0) mg/dL Procalcitonin (0.02-0.50) ng/mL Microbiology - Last 24 Hours (Table) 10/25/24 11:39 Blood Culture - Preliminary Blood Assessment and Plan Assessment: GI bleed related to Coumadin toxicity. Patient's Coumadin level will be reversed. There is no surgical invention planned.
[2024-10-27 12:39] LABS: Basophils % (A) 0 %; Eosinophils # (A) 0.1 k/uL (0-0.7); Eosinophils % (A) 1 %; HCT 38.5 % (39.0-53.0); HGB 12.9 gm/dL (13.0-17.5); Lymphocytes # (A) 0.8 k/uL (1.0-4.8); Lymphocytes % (A) 11 %; MCH 31.1 pg (25.0-35.0); MCHC 33.5 g/dL (31.0-37.0); MCV 92.8 fL (80.0-100.0); Mean Platelet Volume 8.2; Monocytes # (A) 0.3 k/uL (0-1.0); Monocytes % (A) 4 %; Neutrophils # (A) 6.1 k/uL (1.3-7.7); Neutrophils % (A) 83 %; Platelet Count 236 k/uL (150-450); RBC 4.14 m/uL (4.30-5.90); RDW 14.2 % (11.5-15.5); WBC 7.4 k/uL (3.8-10.6)
[2024-10-27 12:42] LABS: HCT 38.3 % (39.0-53.0); HGB 12.4 gm/dL (13.0-17.5); MCH 29.8 pg (25.0-35.0); MCHC 32.2 g/dL (31.0-37.0); MCV 92.4 fL (80.0-100.0); Mean Platelet Volume 8.5; Platelet Count 268 k/uL (150-450); RBC 4.15 m/uL (4.30-5.90); RDW 14.3 % (11.5-15.5); WBC 7.4 k/uL (3.8-10.6)
[2024-10-27 12:48] LABS: INR 3.5 (<1.2)
[2024-10-27 13:09] LABS: ALT 66 U/L (4-49); AST 108 U/L (17-59); African American GFR (CKD) 77 (>60 ml/min/1.73 sqM); Albumin 3.1 g/dL (3.5-5.0); Alkaline Phosphatase 84 U/L (38-126); Anion Gap 9 mmol/L; Blood Urea Nitrogen 24 mg/dL (9-20); Calcium 8.7 mg/dL (8.4-10.2); Carbon Dioxide 27 mmol/L (22-30); Chloride 102 mmol/L (98-107); Glucose 115 mg/dL (74-99); Non-African American GFR(CKD) 67 (>60 ml/min/1.73 sqM); Sodium 138 mmol/L (137-145); Total Bilirubin 0.7 mg/dL (0.2-1.3); Total Protein 6.3 g/dL (6.3-8.2)
[2024-10-27] MEDS ORDERED: CLOTRIMAZOLE 1% CREAM 30 GM TUBE TOPICAL PRN (14:05)
[2024-10-27] MEDS ORDERED: lisinopriL 5 MG TAB PO PRN (14:05)
[2024-10-27] MEDS ORDERED: HYDROCORTISONE 1% CREAM 30 GM TUBE TOPICAL PRN (14:05)
[2024-10-27] MEDS ORDERED: COLCHICINE 0.6 MG EACH PO PRN (14:05)
--- NOTE | 2024-10-27 14:08 | P.PN ---
Subjective Progress Note Date: 10/27/24 patient 83-year-old gentleman with past medical history significant for hyperlipidemia, COPD, right lower extremity DVT who presented to ER for shortness of breath and dark stools. Patient stated he was all right couple of days back when started noticing increasing shortness of breath. Shortness of breath was present on rest as on exertion. Patient also complaining of dark stools, there was no complaint of nausea vomiting abdominal pain. There is no acute hematemesis. Patient currently takes Coumadin. Because of shortness of breath, patient went to urgent care from where he was referred to the ER Initial lab work done in the ER showed WBC 9.9, hemoglobin 16, platelet count 239, INR greater than 10, sodium 133, potassium 5.5, BUN 20, creatinine 1.79 lactate 3.2 troponin 0.183 AST 83 ALT 62 Influenza A not detected Influenza B not detected RSV not detected COVID-19 not detected EKG done in the ER showed heart rate of 114, no ST segment elevation or depression seen, no T-wave inversions seen. Chest x-ray done in the ER showed bilateral perihilar reticular opacities concerning for pneumonia Patient admitted to internal medicine service 10/27/2024. Patient seen and examined. Sitting upright in the bed. Blood work this morning showedWBC 7.4, hemoglobin 8.4, INR is 3.5, sodium 130, potassium 5, BUN is 24, creatinine 1.05. Patient did have 1 bowel movement where stools were dark in color but hemoglobin has not dropped much compared to yesterday REVIEW OF SYSTEMS: CONSTITUTIONAL: No fever, no malaise,. CARDIOVASCULAR: No chest pain, no palpitations, no syncope. PULMONARY: No shortness of breath, no cough, GASTROINTESTINAL: No diarrhea, no nausea, no vomiting, no abdominal pain. NEUROLOGICAL: No headaches, no weakness, PHYSICAL EXAMINATION: GENERAL: The patient is alert and oriented x3, not in any acute distress. Well developed, well nourished. HEENT: Pupils are round and equally reacting to light. EOMI. No scleral icterus. No conjunctival pallor. Normocephalic, atraumatic. No pharyngeal erythema. No thyromegaly. CARDIOVASCULAR: S1 and S2 present. No murmurs, rubs, or gallops. PULMONARY: Chest is clear to auscultation, no wheezing or crackles. ABDOMEN: Soft, nontender, nondistended, normoactive bowel sounds. No palpable organomegaly. MUSCULOSKELETAL: No joint swelling or deformity. EXTREMITIES: No cyanosis, clubbing, or pedal edema. NEUROLOGICAL: Gross neurological examination did not reveal any focal deficits. SKIN: No rashes. Assessment and plan Bacterial pneumonia Acute COPD exacerbation Supratherapeutic INR GI bleed Hyponatremia Hyperkalemia Acute kidney injury Elevated troponin History of right lower extremity DVT Monitor vital signs Monitor CBC Monitor CMP Continue telemetry monitoring Serial troponin Strict I's and O's, daily weights Serial INRs, INR this morning is 3.5, continue to hold Coumadin Continue IV Rocephin and azithromycin Continue IV Protonix Cardiology following Pulmonology following Surgery following, not planning any endoscopic intervention Labs and medication were reviewed.. Continue same treatment. Continue with symptomatic treatment. Resume home medication. Monitor labs and vitals. DVT and GI prophylaxis. Further recommendations as per clinical course of the patient Dictation was produced using [employer] dictation software. please excuse any grammatical, word or spelling errors. Objective - Vital Signs Vital signs: Vital Signs Temp 98.3 F 10/27/24 12:13 Pulse 68 10/27/24 12:28 Resp 16 10/27/24 12:13 BP 133/65 10/27/24 12:13 Pulse Ox 94 L 10/27/24 13:32 FiO2 Intake & Output 10/26/24 10/27/24 10/27/24 18:59 06:59 18:59 Weight 79.379 kg Other: Voiding Method Toilet # Voids 1 - Labs CBC & Chem 7: 10/27/24 12:03 10/27/24 12:03 Labs: Abnormal Lab Results - Last 24 Hours (Table) 10/26/24 10/26/24 10/26/24 Range/Units 11:00 11:00 14:17 RBC (4.30-5.90) m/uL Hgb (13.0-17.5) gm/dL Hct (39.0-53.0) % Lymphocytes # (1.0-4.8) k/uL ESR 81 H (0-20) mm/Hr PT (10.0-12.5) sec INR (<1.2) BUN (9-20) mg/dL Glucose (74-99) mg/dL AST (17-59) U/L ALT (4-49) U/L Troponin I 0.194 H* (0.000-0.034) ng/mL Albumin (3.5-5.0) g/dL Procalcitonin 1.27 H (0.02-0.50) ng/mL 10/26/24 10/27/24 10/27/24 Range/Units 17:09 12:03 12:03 RBC 4.14 L (4.30-5.90) m/uL Hgb 12.9 L (13.0-17.5) gm/dL Hct 38.5 L (39.0-53.0) % Lymphocytes # 0.8 L (1.0-4.8) k/uL ESR (0-20) mm/Hr PT 35.0 H (10.0-12.5) sec INR 3.5 H (<1.2) BUN (9-20) mg/dL Glucose (74-99) mg/dL AST (17-59) U/L ALT (4-49) U/L Troponin I 0.179 H* (0.000-0.034) ng/mL Albumin (3.5-5.0) g/dL Procalcitonin (0.02-0.50) ng/mL 10/27/24 10/27/24 Range/Units 12:03 12:03 RBC 4.15 L (4.30-5.90) m/uL Hgb 12.4 L (13.0-17.5) gm/dL Hct 38.3 L (39.0-53.0) % Lymphocytes # (1.0-4.8) k/uL ESR (0-20) mm/Hr PT (10.0-12.5) sec INR (<1.2) BUN 24 H (9-20) mg/dL Glucose 115 H (74-99) mg/dL AST 108 H (17-59) U/L ALT 66 H (4-49) U/L Troponin I (0.000-0.034) ng/mL Albumin 3.1 L (3.5-5.0) g/dL Procalcitonin (0.02-0.50) ng/mL Microbiology - Last 24 Hours (Table) 10/26/24 10:27 Gram Stain - Preliminary Sputum Sputum Culture - Preliminary 10/25/24 11:39 Blood Culture - Preliminary Blood
--- NOTE | 2024-10-27 14:27 | P.PN ---
Subjective Progress Note Date: 10/27/24 History of Present Illness: The patient is an 83-year-old male with a history of borderline hypertension who presented with diarrhea, black stool and symptoms of dyspnea. In the emergency room he was found to have an INR above 10, minimally elevated troponin and cardiology consultation was requested. He is usually active physically, has no exertional chest discomfort or significant dyspnea. He recently fell while shoveling snow and since that time he has been dyspneic with some symptoms of respiratory infection. For the last 3 days he noted black stool with diarrhea. He has been maintained on Coumadin for over 10 years. Initially he had DVT post knee surgery, was anticoagulated at that time but had recurrent DVT afterward and has been maintained on Coumadin, typically his INR is between 2 and 3 and has been stable. He has not taking any antibiotics recently. He has a history of hypertension but at times it is on the low side and does not require taking his lisinopril. He has no chest discomfort except after the fall, chest wall tenderness. He has no history of peripheral edema, PND or orthopnea. He denies any dizziness or palpitations. He has no history of documented obstructive CAD or CHF in the past. He is a non-smoker, stopped 22 years ago, he is prediabetic and hyperlipidemic. Medications: Lisinopril 5 mg daily, warfarin, atorvastatin 20 mg daily, colchicine 10/27/2024 Patient is seen and examined at bedside this a.m. He reports having shortness of breath and cough but reports feeling better as compared to yesterday. Heart rate 68 beats minute, sinus rhythm, BP 143/88 Physical Examination: 83-year-old male, alert oriented no apparent distress,Blood pressure 110/60, Heart rate 76 Head: Normocephalic. Eyes: Sclerae nonicteric. Neck: Good carotid upstroke, no bruit, no jugular venous distention. Lungs: Clear to auscultation. Heart: Regular rate and rhythm, S1-S2, no S3, no rub. No murmur. Abdomen: Soft nontender, positive bowel sounds no organomegaly. Extremities: No edema, intact distal pulses. Labs: On presentation INR above 10, potassium 5.5, BUN 28 and creatinine 1.79. Today his potassium is 4.2, BUN 32 and creatinine 1.14. His hemoglobin on admission was 16, down to 12.9 this morning. AST 124, ALT 65. His chest x-ray is suggestive of pneumonia with perihilar infiltrates. Troponin 0.183 with NT proBNP of 1200. EKG: Sinus mechanism with PACs, right bundle branch block Echo: shows EF of 50%, moderate septal hypertrophy, no major valvular abnormality Impression: 1. Probable pneumonia with abnormal chest x-ray. 2. Hypercoagulation 3. GI bleed 4. Acute renal injury, resolved. 5. Mild troponin elevation could be related to the acute renal injury and pneumonia 6. Prior history of DVT, anticoagulated 7. History of hyperlipidemia 8. History of hypertension Plan: Continue Lipitor, Once stable patient may need further cardiac workup Further recommendations to follow Objective - Vital Signs Vital signs: Vital Signs Temp 98.3 F 10/27/24 12:13 Pulse 68 10/27/24 12:28 Resp 16 10/27/24 12:13 BP 133/65 10/27/24 12:13 Pulse Ox 94 L 10/27/24 13:32 FiO2 Intake & Output 10/26/24 10/27/24 10/27/24 18:59 06:59 18:59 Weight 79.379 kg Other: Voiding Method Toilet # Voids 1 - Labs CBC & Chem 7: 10/27/24 12:03 10/27/24 12:03 Labs: Abnormal Lab Results - Last 24 Hours (Table) 10/26/24 10/26/24 10/26/24 Range/Units 11:00 11:00 14:17 RBC (4.30-5.90) m/uL Hgb (13.0-17.5) gm/dL Hct (39.0-53.0) % Lymphocytes # (1.0-4.8) k/uL ESR 81 H (0-20) mm/Hr PT (10.0-12.5) sec INR (<1.2) BUN (9-20) mg/dL Glucose (74-99) mg/dL AST (17-59) U/L ALT (4-49) U/L Troponin I 0.194 H* (0.000-0.034) ng/mL Albumin (3.5-5.0) g/dL Procalcitonin 1.27 H (0.02-0.50) ng/mL 10/26/24 10/27/2410/27/25 Range/Units 17:09 12:03 12:03 RBC 4.14 L (4.30-5.90) m/uL Hgb 12.9 L (13.0-17.5) gm/dL Hct 38.5 L (39.0-53.0) % Lymphocytes # 0.8 L (1.0-4.8) k/uL ESR (0-20) mm/Hr PT 35.0 H (10.0-12.5) sec INR 3.5 H (<1.2) BUN (9-20) mg/dL Glucose (74-99) mg/dL AST (17-59) U/L ALT (4-49) U/L Troponin I 0.179 H* (0.000-0.034) ng/mL Albumin (3.5-5.0) g/dL Procalcitonin (0.02-0.50) ng/mL 10/27/24 10/27/24 Range/Units 12:03 12:03 RBC 4.15 L (4.30-5.90) m/uL Hgb 12.4 L (13.0-17.5) gm/dL Hct 38.3 L (39.0-53.0) % Lymphocytes # (1.0-4.8) k/uL ESR (0-20) mm/Hr PT (10.0-12.5) sec INR (<1.2) BUN 24 H (9-20) mg/dL Glucose 115 H (74-99) mg/dL AST 108 H (17-59) U/L ALT 66 H (4-49) U/L Troponin I (0.000-0.034) ng/mL Albumin 3.1 L (3.5-5.0) g/dL Procalcitonin (0.02-0.50) ng/mL Microbiology - Last 24 Hours (Table) 10/26/24 10:27 Gram Stain - Preliminary Sputum Sputum Culture - Preliminary 10/25/24 11:39 Blood Culture - Preliminary Blood
--- NOTE | 2024-10-27 15:07 | P.PN ---
Subjective Progress Note Date: 10/27/24 This is an 83-year-old male patient with a known history of hypertension, gout, hyperlipidemia, former smoker, right lower extremity DVT x 2 and maintained on warfarin. He presented here to the emergency room yesterday with complaints of shortness of breath and black liquidy stool. He had also developed generalized weakness. X-ray lateral perihilar reticular opacities. EKG reveals sinus rhythm with frequent PACs and a right bundle branch block. White count 10.1. Hemoglobin 12.9. Platelets 224. Sodium 136. Potassium 4.2. Bicarb 24. BUN 32. Creatinine 1.14. Glucose 123. AST 124. ALT 65. Troponin 0.200, 0.194. Procalcitonin 1.27. C-reactive protein 26.6. proBNP 1200. Viral screen negative. He is seen today in consultation in the emergency department. He is currently resting on a stretcher. Awake and alert in no acute distress. Maintaining O2 saturations in the 90s on 2 L/min per nasal cannula. He has been afebrile. Hemodynamically stable. Patient's presenting INR was greater than 10. He did receive vitamin K. Current INR 4.3. The patient is seen today October 27, 2024 in follow-up in the emergency department. He is currently resting comfortably on a stretcher. Awake and alert in no acute distress. Maintaining O2 saturation in the 90s on 3 L/min per nasal cannula. Procalcitonin was 1.27. White count 7.4. Hemoglobin 12.4. Platelets 268. INR 3.5. Sodium 138. Potassium 5.0. Bicarb 27. BUN 24. Creatinine 1.05. Glucose 115. AST 108. A LT 66. He is continued on ceftriaxone and azithromycin. He remains on DuoNeb inhalations. Normal saline at KVO. Objective - Vital Signs Vital signs: Vital Signs Temp 98.3 F 10/27/24 12:13 Pulse 68 10/27/24 12:28 Resp 16 10/27/24 12:13 BP 133/65 10/27/24 12:13 Pulse Ox 94 L 10/27/24 13:32 FiO2 Intake & Output 10/26/24 10/27/24 10/27/24 18:59 06:59 18:59 Weight 79.379 kg Other: Voiding Method Toilet # Voids 1 - Exam GENERAL EXAM: Alert, 83-year-old male patient, on 2 L nasal cannula, comfortable in no apparent distress. HEAD: Normocephalic. EYES: Normal reaction of pupils, equal size. NOSE: Clear with pink turbinates. THROAT: No erythema or exudates. NECK: No masses, no JVD. CHEST: No chest wall deformity. LUNGS: Equal air entry with few scattered rhonchi. CVS: S1 and S2 normal with no audible murmur, regular rhythm. ABDOMEN: No hepatosplenomegaly, normal bowel sounds, no guarding or rigidity. SPINE: No scoliosis or deformity SKIN: No rashes CENTRAL NERVOUS SYSTEM: No focal deficits, tone is normal in all 4 extremities. EXTREMITIES: There is no peripheral edema. No clubbing, no cyanosis. Peripheral pulses are intact. - Labs CBC & Chem 7: 10/27/24 12:03 10/27/24 12:03 Labs: Abnormal Lab Results - Last 24 Hours (Table) 10/26/24 10/26/24 10/26/24 Range/Units 11:00 11:00 14:17 RBC (4.30-5.90) m/uL Hgb (13.0-17.5) gm/dL Hct (39.0-53.0) % Lymphocytes # (1.0-4.8) k/uL ESR 81 H (0-20) mm/Hr PT (10.0-12.5) sec INR (<1.2) BUN (9-20) mg/dL Glucose (74-99) mg/dL AST (17-59) U/L ALT (4-49) U/L Troponin I 0.194 H* (0.000-0.034) ng/mL Albumin (3.5-5.0) g/dL Procalcitonin 1.27 H (0.02-0.50) ng/mL 10/26/24 10/27/24 10/27/24 Range/Units 17:09 12:03 12:03 RBC 4.14 L (4.30-5.90) m/uL Hgb 12.9 L (13.0-17.5) gm/dL Hct 38.5 L (39.0-53.0) % Lymphocytes # 0.8 L (1.0-4.8) k/uL ESR (0-20) mm/Hr PT 35.0 H (10.0-12.5) sec INR 3.5 H (<1.2) BUN (9-20) mg/dL Glucose (74-99) mg/dL AST (17-59) U/L ALT (4-49) U/L Troponin I 0.179 H* (0.000-0.034) ng/mL Albumin (3.5-5.0) g/dL Procalcitonin (0.02-0.50) ng/mL 10/27/24 10/27/24 Range/Units 12:03 12:03 RBC 4.15 L (4.30-5.90) m/uL Hgb 12.4 L (13.0-17.5) gm/dL Hct 38.3 L (39.0-53.0) % Lymphocytes # (1.0-4.8) k/uL ESR (0-20) mm/Hr PT (10.0-12.5) sec INR (<1.2) BUN 24 H (9-20) mg/dL Glucose 115 H (74-99) mg/dL AST 108 H (17-59) U/L ALT 66 H (4-49) U/L Troponin I (0.000-0.034) ng/mL Albumin 3.1 L (3.5-5.0) g/dL Procalcitonin (0.02-0.50) ng/mL Microbiology - Last 24 Hours (Table) 10/26/24 10:27 Gram Stain - Preliminary Sputum Sputum Culture - Preliminary 10/25/24 11:39 Blood Culture - Preliminary Blood Assessment and Plan Assessment: Acute hypoxic respiratory failure secondary to suspected community-acquired pneumonia. Procalcitonin 1.27. 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 Number of minutes spent on the visit: 10 Dictation was produced using [email or web address] dictation software. Please excuse any gr ammatical, word or spelling errors. This patient was seen in coordination with the pulmonary/critical care physician, Dr. Chahal. He did spend greater than 50% of the time evaluating, examining and developing the plan of care. He agrees to the above HPI, physical exam, assessment and plan of care as dictated by the nurse practitioner.
[2024-10-28 02:51] VITALS: RESP 16
[2024-10-28 07:15] LABS: Basophils % (A) 1 %; Eosinophils # (A) 0.1 k/uL (0-0.7); Eosinophils % (A) 2 %; HCT 38.2 % (39.0-53.0); Lymphocytes # (A) 0.8 k/uL (1.0-4.8); Lymphocytes % (A) 14 %; MCH 29.6 pg (25.0-35.0); MCHC 31.5 g/dL (31.0-37.0); Mean Platelet Volume 7.4; Monocytes # (A) 0.2 k/uL (0-1.0); Monocytes % (A) 4 %; Neutrophils # (A) 4.4 k/uL (1.3-7.7); Neutrophils % (A) 77 %; Platelet Count 242 k/uL (150-450); RBC 4.07 m/uL (4.30-5.90); RDW 13.8 % (11.5-15.5); WBC 5.7 k/uL (3.8-10.6)
[2024-10-28 08:03] LABS: ALT 107 U/L (4-49); AST 127 U/L (17-59); African American GFR (CKD) >90 (>60 ml/min/1.73 sqM); Albumin 2.8 g/dL (3.5-5.0); Alkaline Phosphatase 75 U/L (38-126); Anion Gap 9 mmol/L; Blood Urea Nitrogen 18 mg/dL (9-20); Calcium 8.4 mg/dL (8.4-10.2); Carbon Dioxide 23 mmol/L (22-30); Chloride 107 mmol/L (98-107); Glucose 126 mg/dL (74-99); Non-African American GFR(CKD) 78 (>60 ml/min/1.73 sqM); Potassium 4.3 mmol/L (3.5-5.1); Sodium 139 mmol/L (137-145); Total Bilirubin 0.7 mg/dL (0.2-1.3); Total Protein 6.1 g/dL (6.3-8.2)
[2024-10-28 10:03] LABS: % Iron Saturation 19.59 (15.00-50.00); Iron 29 UG/DL (65-175); Total Iron Binding Capacity 148 UG/DL (228-460)
[2024-10-28 10:59] LABS: INR 3.8 (<1.2); Prothrombin Time 37.3 sec (10.0-12.5)
--- NOTE | 2024-10-28 11:49 | P.PN ---
Subjective Progress Note Date: 10/28/24 SURGICAL PROGRESS NOTE CHIEF COMPLAINT: GI bleed HISTORY OF PRESENT ILLNESS: Patient is lying in bed comfortably. He has had no further black stool. He denies any abdominal pain. He did have a INR of g reater than 10 on admission now down to 3.8. Patient is tolerating diet. Hemoglobin stable at 12. Patient received vitamin K to reverse Coumadin PHYSICAL EXAM: VITAL SIGNS: Reviewed. GENERAL: Well-developed in no acute distress. ABDOMEN: Soft. Nondistended. Nontender. ASSESSMENT: 1. Acute GI bleed likely related to Coumadin toxicity. Melanotic stools resolved. Hemoglobin stable. PLAN: -No surgical intervention planned -Surgical service will sign off. Please call with any questions or concerns. Physician Board Hammer Operator note has been reviewed by physician. Signing provider agrees with the documented findings, assessment, and plan of care. Objective - Vital Signs Vital signs: Vital Signs Temp 98.1 F 10/28/24 08:00 Pulse 82 10/28/24 11:17 Resp 16 10/28/24 08:00 BP 126/69 10/28/24 08:00 Pulse Ox 96 10/28/24 08:00 FiO2 Intake & Output 10/27/24 10/28/24 10/28/24 18:59 06:59 18:59 Intake Total 10 260 180 Output Total 400 Balance 10 260 -220 Weight 79.379 kg 79.5 kg Intake: IV 10 20 Invasive Line 1 10 20 Oral 240 180 Output: Urine 400 Other: Voiding Method Toilet Toilet Toilet # Voids 1 # Bowel Movements 1 - Labs CBC & Chem 7: 10/28/24 06:48 10/28/24 06:48 Labs: Abnormal Lab Results - Last 24 Hours (Table) 10/27/24 10/27/24 10/27/24 Range/Units 12:03 12:03 12:03 RBC 4.14 L (4.30-5.90) m/uL Hgb 12.9 L (13.0-17.5) gm/dL Hct 38.5 L (39.0-53.0) % Lymphocytes # 0.8 L (1.0-4.8) k/uL PT 35.0 H (10.0-12.5) sec INR 3.5 H (<1.2) BUN 24 H (9-20) mg/dL Glucose 115 H (74-99) mg/dL Iron 29 L (65-175) UG/DL TIBC 148 L (228-460) UG/DL Transferrin 106.0 L (204.0-354.0) mg/dL AST 108 H (17-59) U/L ALT 66 H (4-49) U/L Total Protein (6.3-8.2) g/dL Albumin 3.1 L (3.5-5.0) g/dL 10/27/24 10/28/24 10/28/24 Range/Units 12:03 06:48 06:48 RBC 4.15 L 4.07 L (4.30-5.90) m/uL Hgb 12.4 L 12.0 L (13.0-17.5) gm/dL Hct 38.3 L 38.2 L (39.0-53.0) % Lymphocytes # 0.8 L (1.0-4.8) k/uL PT (10.0-12.5) sec INR (<1.2) BUN (9-20) mg/dL Glucose 126 H (74-99) mg/dL Iron (65-175) UG/DL TIBC (228-460) UG/DL Transferrin (204.0-354.0) mg/dL AST 127 H (17-59) U/L ALT 107 H (4-49) U/L Total Protein 6.1 L (6.3-8.2) g/dL Albumin 2.8 L (3.5-5.0) g/dL 10/28/24 Range/Units 10:14 RBC (4.30-5.90) m/uL Hgb (13.0-17.5) gm/dL Hct (39.0-53.0) % Lymphocytes # (1.0-4.8) k/uL PT 37.3 H (10.0-12.5) sec INR 3.8 H (<1.2) BUN (9-20) mg/dL Glucose (74-99) mg/dL Iron (65-175) UG/DL TIBC (228-460) UG/DL Transferrin (204.0-354.0) mg/dL AST (17-59) U/L ALT (4-49) U/L Total Protein (6.3-8.2) g/dL Albumin (3.5-5.0) g/dL Microbiology - Last 24 Hours (Table) 10/26/24 10:27 Gram Stain - Final Sputum Sputum Culture - Final 10/25/24 11:39 Blood Culture - Preliminary Blood
--- NOTE | 2024-10-28 12:06 | P.PN ---
Subjective Progress Note Date: 10/28/24 History of Present Illness: The patient is an 83-year-old male with a history of borderline hypertension who presented with diarrhea, black stool and symptoms of dyspnea. In the emergency room he was found to have an INR above 10, minimally elevated troponin and cardiology consultation was requested. He is usually active physically, has no exertional chest discomfort or significant dyspnea. He recently fell while shoveling snow and since that time he has been dyspneic with some symptoms of respiratory infection. For the last 3 days he noted black stool with diarrhea. He has been maintained on Coumadin for over 10 years. Initially he had DVT post knee surgery, was anticoagulated at that time but had recurrent DVT afterward and has been maintained on Coumadin, typically his INR is between 2 and 3 and has been stable. He has not taking any antibiotics recently. He has a history of hypertension but at times it is on the low side and does not require taking his lisinopril. He has no chest discomfort except after the fall, chest wall tenderness. He has no history of peripheral edema, PND or orthopnea. He denies any dizziness or palpitations. He has no history of documented obstructive CAD or CHF in the past. He is a non-smoker, stopped 22 years ago, he is prediabetic and hyperlipidemic. Medications: Lisinopril 5 mg daily, warfarin, atorvastatin 20 mg daily, colchicine Labs: On presentation INR above 10, potassium 5.5, BUN 28 and creatinine 1.79. Today his potassium is 4.2, BUN 32 and creatinine 1.14. His hemoglobin on admission was 16, down to 12.9 this morning. AST 124, ALT 65. His chest x-ray is suggestive of pneumonia with perihilar infiltrates. Troponin 0.183 with NT proBNP of 1200. EKG: Sinus mechanism with PACs, right bundle branch block Echo: shows EF of 50%, moderate septal hypertrophy, no major valvular abnormality 10/27/2024 Patient is seen and examined at bedside this a.m. He reports having shortness of breath and cough but reports feeling better as compared to yesterday. Heart rate 68 beats minute, sinus rhythm, BP 143/88 10/28/24 Patient is seen and examined. He states he is feeling fine. He states he had a bowel movement this morning but no blackness to it. No chest pain no wheezing. He states he has a little bit of a cough. Blood pressure 144/83, heart rate 79, pulse ox 96% on 2 L nasal cannula. Patient states that he will be leaving or plans to leave for [place] next Friday and will remain there for 4 months. Patient advised to have follow-up with decal transferrer while in [place]. Physical Examination: 83-year-old male, alert oriented no apparent distress Head: Normocephalic. Eyes: Sclerae nonicteric. Neck: Good carotid upstroke, no bruit, no jugular venous distention. Lungs: Clear to auscultation. Heart: Regular rate and rhythm, S1-S2, no S3, no rub. No murmur. Abdomen: Soft nontender, positive bowel sounds no organomegaly. Extremities: No edema, intact distal pulses. Impression: 1. Probable pneumonia with abnormal chest x-ray. 2. Hypercoagulation 3. Acute GI bleed 4. Acute renal injury, resolved. 5. Mild troponin elevation could be related to the acute renal injury and pneumonia 6. Prior history of DVT, anticoagulated 7. History of hyperlipidemia 8. History of hypertension Plan: Continue Lipitor Hold Coumadin Recommend the patient undergo outpatient stress test but he states he will be going to [place] a week from Friday and thus recommended that patient have follow-up while he is in [place]. Further recommendations to follow Nurse practitioner note has been reviewed, I agree with documented findings and plan of care. Patient was seen and examined. Objective - Vital Signs Vital signs: Vital Signs Temp 98.6 F 10/27/24 20:00 Pulse 80 10/28/24 07:54 Resp 16 10/28/24 04:00 BP 144/83 10/28/24 04:00 Pulse Ox 92 L 10/28/24 07:47 FiO2 Intake & Output 10/27/24 10/28/24 10/28/24 18:59 06:59 18:59 Intake Total 10 260 180 Output Total 400 Balance 10 260 -220 Weight 79.379 kg 79.5 kg Intake: IV 10 20 Invasive Line 1 10 20 Oral 240 180 Output: Urine 400 Other: Voiding Method Toilet Toilet # Voids 1 # Bowel Movements 1 - Labs CBC & Chem 7: 10/28/24 06:48 10/28/24 06:48 Labs: Abnormal Lab Results - Last 24 Hours (Table) 10/27/24 10/27/2425 Range/Units 12:03 12:03 12:03 RBC 4.14 L (4.30-5.90) m/uL Hgb 12.9 L (13.0-17.5) gm/dL Hct 38.5 L (39.0-53.0) % Lymphocytes # 0.8 L (1.0-4.8) k/uL PT 35.0 H (10.0-12.5) sec INR 3.5 H (<1.2) BUN 24 H (9-20) mg/dL Glucose 115 H (74-99) mg/dL AST 108 H (17-59) U/L ALT 66 H (4-49) U/L Total Protein (6.3-8.2) g/dL Albumin 3.1 L (3.5-5.0) g/dL 10/27/24 10/28/24 10/28/24 Range/Units 12:03 06:48 06:48 RBC 4.15 L 4.07 L (4.30-5.90) m/uL Hgb 12.4 L 12.0 L (13.0-17.5) gm/dL Hct 38.3 L 38.2 L (39.0-53.0) % Lymphocytes # 0.8 L (1.0-4.8) k/uL PT (10.0-12.5) sec INR (<1.2) BUN (9-20) mg/dL Glucose 126 H (74-99) mg/dL AST 127 H (17-59) U/L ALT 107 H (4-49) U/L Total Protein 6.1 L (6.3-8.2) g/dL Albumin 2.8 L (3.5-5.0) g/dL Microbiology - Last 24 Hours (Table) 10/26/24 10:27 Gram Stain - Final Sputum Sputum Culture - Final 10/25/24 11:39 Blood Culture - Preliminary Blood
--- NOTE | 2024-10-28 13:51 | P.PN ---
Subjective Progress Note Date: 10/28/24 patient 83-year-old gentleman with past medical history significant for hyperlipidemia, COPD, right lower extremity DVT who presented to ER for shortness of breath and dark stools. Patient stated he was all right couple of days back when started noticing increasing shortness of breath. Shortness of breath was present on rest as on exertion. Patient also complaining of dark stools, there was no complaint of nausea vomiting abdominal pain. There is no acute hematemesis. Patient currently takes Coumadin. Because of shortness of breath, patient went to urgent care from where he was referred to the ER Initial lab work done in the ER showed WBC 9.9, hemoglobin 16, platelet count 239, INR greater than 10, sodium 133, potassium 5.5, BUN 20, creatinine 1.79 lactate 3.2 troponin 0.183 AST 83 ALT 62 Influenza A not detected Influenza B not detected RSV not detected COVID-19 not detected EKG done in the ER showed heart rate of 114, no ST segment elevation or depression seen, no T-wave inversions seen. Chest x-ray done in the ER showed bilateral perihilar reticular opacities concerning for pneumonia Patient admitted to internal medicine service 10/27/2024. Patient seen and examined. Sitting upright in the bed. Blood work this morning showedWBC 7.4, hemoglobin 8.4, INR is 3.5, sodium 130, potassium 5, BUN is 24, creatinine 1.05. Patient did have 1 bowel movement where stools were dark in color but hemoglobin has not dropped much compared to yesterday 10/28/24. Patient seen and examined.. Blood work done today showed WBC 5.7, hemoglobin 12, sodium 139, potassium 4.3, BUN 18, creatinine 0.92, no blood in the stools. REVIEW OF SYSTEMS: CONSTITUTIONAL: No fever, no malaise,. CARDIOVASCULAR: No chest pain, no palpitations, no syncope. PULMONARY: No shortness of breath, no cough, GASTROINTESTINAL: No diarrhea, no nausea, no vomiting, no abdominal pain. NEUROLOGICAL: No headaches, no weakness, PHYSICAL EXAMINATION: GENERAL: The patient is alert and oriented x3, not in any acute distress. Well developed, well nourished. HEENT: Pupils are round and equally reacting to light. EOMI. No scleral icterus. No conjunctival pallor. Normocephalic, atraumatic. No pharyngeal erythema. No thyromegaly. CARDIOVASCULAR: S1 and S2 present. No murmurs, rubs, or gallops. PULMONARY: Chest is clear to auscultation, no wheezing or crackles. ABDOMEN: Soft, nontender, nondistended, normoactive bowel sounds. No palpable organomegaly. MUSCULOSKELETAL: No joint swelling or deformity. EXTREMITIES: No cyanosis, clubbing, or pedal edema. NEUROLOGICAL: Gross neurological examination did not reveal any focal deficits. SKIN: No rashes. Assessment and plan Bacterial pneumonia Acute COPD exacerbation Supratherapeutic INR GI bleed Hyponatremia Hyperkalemia Acute kidney injury Elevated troponin History of right lower extremity DVT Monitor vital signs Monitor CBC Monitor CMP Continue telemetry monitoring Serial troponin Strict I's and O's, daily weights Serial INRs, INR this morning 3.8 continue to hold Coumadin Continue IV Rocephin, azithromycin completed Continue IV Protonix Cardiology following Pulmonology following Surgery following, not planning any endoscopic intervention Labs and medication were reviewed.. Continue same treatment. Continue with s ymptomatic treatment. Resume home medication. Monitor labs and vitals. DVT and GI prophylaxis. Further recommendations as per clinical course of the patient Dictation was produced using [employer] dictation software. please excuse any grammatical, word or spelling errors. Objective - Vital Signs Vital signs: Vital Signs Temp 98.6 F 10/27/24 20:00 Pulse 80 10/28/24 07:54 Resp 16 10/28/24 04:00 BP 144/83 10/28/24 04:00 Pulse Ox 92 L 10/28/24 07:47 FiO2 Intake & Output 10/27/24 10/28/24 10/28/24 18:59 06:59 18:59 Intake Total 10 260 180 Output Total 400 Balance 10 260 -220 Weight 79.379 kg 79.5 kg Intake: IV 10 20 Invasive Line 1 10 20 Oral 240 180 Output: Urine 400 Other: Voiding Method Toilet Toilet # Voids 1 # Bowel Movements 1 - Labs CBC & Chem 7: 10/28/24 06:48 10/28/24 06:48 Labs: Abnormal Lab Results - Last 24 Hours (Table) 10/27/24 10/27/24 10/27/24 Range/Units 12:03 12:03 12:03 RBC 4.14 L (4.30-5.90) m/uL Hgb 12.9 L (13.0-17.5) gm/dL Hct 38.5 L (39.0-53.0) % Lymphocytes # 0.8 L (1.0-4.8) k/uL PT 35.0 H (10.0-12.5) sec INR 3.5 H (<1.2) BUN 24 H (9-20) mg/dL Glucose 115 H (74-99) mg/dL AST 108 H (17-59) U/L ALT 66 H (4-49) U/L Total Protein (6.3-8.2) g/dL Albumin 3.1 L (3.5-5.0) g/dL 10/27/24 10/28/24 10/28/24 Range/Units 12:03 06:48 06:48 RBC 4.15 L 4.07 L (4.30-5.90) m/uL Hgb 12.4 L 12.0 L (13.0-17.5) gm/dL Hct 38.3 L 38.2 L (39.0-53.0) % Lymphocytes # 0.8 L (1.0-4.8) k/uL PT (10.0-12.5) sec INR (<1.2) BUN (9-20) mg/dL Glucose 126 H (74-99) mg/dL AST 127 H (17-59) U/L ALT 107 H (4-49) U/L Total Protein 6.1 L (6.3-8.2) g/dL Albumin 2.8 L (3.5-5.0) g/dL Microbiology - Last 24 Hours (Table) 10/26/24 10:27 Gram Stain - Final Sputum Sputum Culture - Final 10/25/24 11:39 Blood Culture - Preliminary Blood
--- NOTE | 2024-10-28 14:22 | P.PN ---
Subjective Progress Note Date: 10/28/24 This is an 83-year-old male patient with a known history of hypertension, gout, hyperlipidemia, former smoker, right lower extremity DVT x 2 and maintained on warfarin. He presented here to the emergency room yesterday with complaints of shortness of breath and black liquidy stool. He had also developed generalized weakness. X-ray lateral perihilar reticular opacities. EKG reveals sinus rhythm with frequent PACs and a right bundle branch block. White count 10.1. Hemoglobin 12.9. Platelets 224. Sodium 136. Potassium 4.2. Bicarb 24. BUN 32. Creatinine 1.14. Glucose 123. AST 124. ALT 65. Troponin 0.200, 0.194. Procalcitonin 1.27. C-reactive protein 26.6. proBNP 1200. Viral screen negative. He is seen today in consultation in the emergency department. He is currently resting on a stretcher. Awake and alert in no acute distress. Maintaining O2 saturations in the 90s on 2 L/min per nasal cannula. He has been afebrile. Hemodynamically stable. Patient's presenting INR was greater than 10. He did receive vitamin K. Current INR 4.3. The patient is seen today October 27, 2024 in follow-up in the emergency department. He is currently resting comfortably on a stretcher. Awake and alert in no acute distress. Maintaining O2 saturation in the 90s on 3 L/min per nasal cannula. Procalcitonin was 1.27. White count 7.4. Hemoglobin 12.4. Platelets 268. INR 3.5. Sodium 138. Potassium 5.0. Bicarb 27. BUN 24. Creatinine 1.05. Glucose 115. AST 108. A LT 66. He is continued on ceftriaxone and azithromycin. He remains on DuoNeb inhalations. Normal saline at KVO. The patient is seen today October 28, 2024 in follow-up on the selective care unit. He is currently resting comfortably in bed. Awake and alert in no acute distress. Maintaining O2 saturations in the 90s on 2 L/min per nasal cannula. Receiving normal saline at 20 mL/h. INR 3.8. He is continued on ceftriaxone. Procalcitonin was 1.27. Cultures have been negative. White count 5.7. Hemog lobin 12.0. Platelets 242. Sodium 139. Potassium 4.3. Bicarb 23. BUN 18. Creatinine 0.92. Glucose 126. AST 127. ALT 107. He remains on DuoNeb inhalations. Objective - Vital Signs Vital signs: Vital Signs Temp 98.1 F 10/28/24 08:00 Pulse 85 10/28/24 12:00 Resp 16 10/28/24 08:00 BP 126/69 10/28/24 08:00 Pulse Ox 95 10/28/24 12:00 FiO2 Intake & Output 10/27/24 10/28/24 10/28/24 18:59 06:59 18:59 Intake Total 10 260 180 Output Total 400 Balance 10 260 -220 Weight 79.379 kg 79.5 kg Intake: IV 10 20 Invasive Line 1 10 20 Oral 240 180 Output: Urine 400 Other: Voiding Method Toilet Toilet Toilet # Voids 1 # Bowel Movements 1 - Exam GENERAL EXAM: Alert, 83-year-old male, resting comfortably in bed, on 2 L nasal cannula, in no apparent distress. HEAD: Normocephalic. EYES: Normal reaction of pupils, equal size. NOSE: Clear with pink turbinates. THROAT: No erythema or exudates. NECK: No masses, no JVD. CHEST: No chest wall deformity. LUNGS: Equal air entry with few scattered rhonchi. CVS: S1 and S2 normal with no audible murmur, regular rhythm. ABDOMEN: No hepatosplenomegaly, normal bowel sounds, no guarding or rigidity. SPINE: No scoliosis or deformity SKIN: No rashes CENTRAL NERVOUS SYSTEM: No focal deficits, tone is normal in all 4 extremities. EXTREMITIES: There is no peripheral edema. No clubbing, no cyanosis. Peripheral pulses are intact. - Labs CBC & Chem 7: 10/28/24 06:48 10/28/24 06:48 Labs: Abnormal Lab Results - Last 24 Hours (Table) 10/27/24 10/28/24 10/28/24 Range/Units 12:03 06:48 06:48 RBC 4.07 L (4.30-5.90) m/uL Hgb 12.0 L (13.0-17.5) gm/dL Hct 38.2 L (39.0-53.0) % Lymphocytes # 0.8 L (1.0-4.8) k/uL PT (10.0-12.5) sec INR (<1.2) Glucose 126 H (74-99) mg/dL Iron 29 L (65-175) UG/DL TIBC 148 L (228-460) UG/DL Transferrin 106.0 L (204.0-354.0) mg/dL AST 127 H (17-59) U/L ALT 107 H (4-49) U/L Total Protein 6.1 L (6.3-8.2) g/dL Albumin 2.8 L (3.5-5.0) g/dL 10/28/24 Range/Units 10:14 RBC (4.30-5.90) m/uL Hgb (13.0-17.5) gm/dL Hct (39.0-53.0) % Lymphocytes # (1.0-4.8) k/uL PT 37.3 H (10.0-12.5) sec INR 3.8 H (<1.2) Glucose (74-99) mg/dL Iron (65-175) UG/DL TIBC (228-460) UG/DL Transferrin (204.0-354.0) mg/dL AST (17-59) U/L ALT (4-49) U/L Total Protein (6.3-8.2) g/dL Albumin (3.5-5.0) g/dL Microbiology - Last 24 Hours (Table) 10/26/24 10:27 Gram Stain - Final Sputum Sputum Culture - Final 10/25/24 11:39 Blood Culture - Preliminary Blood Assessment and Plan Assessment: Acute hypoxic respiratory failure secondary to suspected community-acquired pneumonia. Procalcitonin 1.27. 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 I have personally seen and examined the patient, performed the documentation and the assessment and plan as written. Number of minutes spent on the visit: 10 Dictation was produced using [employer] dictation software. Please excuse any grammatical, word or spelling errors. This patient was seen in coordination with the pulmonary/critical care physician, Dr. Chahal. He did spend greater than 50% of the time evaluating, examining and developing the plan of care. He agrees to the above HPI, physical exam, assessment and plan of care as dictated by the nurse practitioner.
[2024-10-28 15:15] VITALS: BMI 27.0
[2024-10-28] MEDS: ATORVASTATIN 20 MG TAB PO SCH (20:08)
[2024-10-29 06:54] LABS: Basophils # (A) 0.1 k/uL (0-0.2); Basophils % (A) 1 %; Eosinophils # (A) 0.1 k/uL (0-0.7); Eosinophils % (A) 3 %; HCT 38.8 % (39.0-53.0); HGB 12.7 gm/dL (13.0-17.5); Lymphocytes % (A) 19 %; MCH 30.7 pg (25.0-35.0); MCHC 32.8 g/dL (31.0-37.0); MCV 93.8 fL (80.0-100.0); Mean Platelet Volume 8.1; Monocytes # (A) 0.3 k/uL (0-1.0); Monocytes % (A) 5 %; Neutrophils # (A) 3.9 k/uL (1.3-7.7); Neutrophils % (A) 71 %; Platelet Count 277 k/uL (150-450); RBC 4.14 m/uL (4.30-5.90); RDW 14.2 % (11.5-15.5); WBC 5.5 k/uL (3.8-10.6)
[2024-10-29 07:15] LABS: ALT 84 U/L (4-49); AST 79 U/L (17-59); African American GFR (CKD) >90 (>60 ml/min/1.73 sqM); Alkaline Phosphatase 72 U/L (38-126); Anion Gap 8 mmol/L; Blood Urea Nitrogen 15 mg/dL (9-20); Calcium 8.8 mg/dL (8.4-10.2); Carbon Dioxide 25 mmol/L (22-30); Chloride 106 mmol/L (98-107); Glucose 137 mg/dL (74-99); Non-African American GFR(CKD) 81 (>60 ml/min/1.73 sqM); Potassium 4.6 mmol/L (3.5-5.1); Sodium 139 mmol/L (137-145); Total Bilirubin 0.8 mg/dL (0.2-1.3); Total Protein 6.4 g/dL (6.3-8.2)
[2024-10-29] MEDS: MULTIVITAMINS, THERA 1 EACH TAB PO SCH (08:31)
[2024-10-29] MEDS: allopurinoL 300 MG TAB PO SCH (08:31)
[2024-10-29 10:24] LABS: Prothrombin Time 39.2 sec (10.0-12.5)
--- NOTE | 2024-10-29 11:19 | XR ---
EXAMINATION TYPE: XR chest 1V portable DATE OF EXAM: 10/29/2024 7:02 AM COMPARISON: None. CLINICAL INDICATION: Male, 83 years old with history of Pneumonia, TECHNIQUE: XR chest 1V portable view(s) obtained. FINDINGS: The heart size is normal. The pulmonary vasculature is normal. There is improvement of left lower lobe infiltrate. Advanced degenerative changes are at the bilateral shoulders. There is loss of the glenohumeral joint spaces with sclerosis and spurring present. IMPRESSION: 1. Improvement of previous suspected left lower lobe pneumonia. [facility], , 10/29/2024 11:16 AM
[2024-10-29 11:54] VITALS: BP 132/73; TEMP 98.1
[2024-10-29 12:58] VITALS: PULSE 80
--- NOTE | 2024-10-29 13:11 | P.DS ---
Providers Date of admission: 10/25/24 12:20 Expected date of discharge: 10/29/24 Attending physician: Guero Sears Consults: 10/26/24 10:32 Consult Physician Routine Consulting Provider: Ramon Garcia Consult Reason/Comments: Elevated troponin, Do you want consulting provider notified?: Yes 10/26/24 10:37 Consult Physician Routine Consulting Provider: Florentin Steel Consult Reason/Comments: Pneumonia, respiratory failure Do you want consulting provider notified?: Yes Primary care physician: Aniket Botello [facility] Course: Discharge diagnoses; Bacterial pneumonia Acute COPD exacerbation Supratherapeutic INR GI bleed Hyponatremia Hyperkalemia Acute kidney injury Elevated troponin History of right lower extremity DVT Hospital course; patient 83-year-old gentleman with past medical history significant for hyperlipidemia, COPD, right lower extremity DVT who presented to ER for shortness of breath and dark stools. Patient stated he was all right couple of days back when started noticing increasing shortness of breath. Shortness of breath was present on rest as on exertion. Patient also complaining of dark stools, there was no complaint of nausea vomiting abdominal pain. There is no acute hematemesis. Patient currently takes Coumadin. Because of shortness of breath, patient went to urgent care from where he was referred to the ER Initial lab work done in the ER showed WBC 9.9, hemoglobin 16, platelet count 239, INR greater than 10, sodium 133, potassium 5.5, BUN 20, creatinine 1.79 lactate 3.2 troponin 0.183 AST 83 ALT 62 Influenza A not detected Influenza B not detected RSV not detected COVID-19 not detected EKG done in the ER showed heart rate of 114, no ST segment elevation or depression seen, no T-wave inversions seen. Chest x-ray done in the ER showed bilateral perihilar reticular opacities concerning for pneumonia Patient admitted to internal medicine service 10/27/2024. Patient seen and examined. Sitting upright in the bed. Blood work this morning showedWBC 7.4, hemoglobin 8.4, INR is 3.5, sodium 130, potassium 5, BUN is 24, creatinine 1.05. Patient did have 1 bowel movement where stools were dark in color but hemoglobin has not dropped much compared to yesterday 10/28/24. Patient seen and examined.. Blood work done today showed WBC 5.7, hemoglobin 12, sodium 139, potassium 4.3, BUN 18, creatinine 0.92, no blood in the stools. / patient seen and examined. INR this morning is 4, discussed with patient detail regarding the need for him to skip 3 days of Coumadin and get INR checked on Friday and resume depending upon the INR value. Cardiology cleared the patient for discharge .patient completed course of antibiotics PHYSICAL EXAMINATION: GENERAL: The patient is alert and oriented x3, not in any acute distress. Well developed, well nourished. HEENT: Pupils are round and equally reacting to light. EOMI. No scleral icterus. No conjunctival pallor. Normocephalic, atraumatic. No pharyngeal erythema. No thyromegaly. CARDIOVASCULAR: S1 and S2 present. No murmurs, rubs, or gallops. PULMONARY: Chest is clear to auscultation, no wheezing or crackles. ABDOMEN: Soft, nontender, nondistended, normoactive bowel sounds. No palpable organomegaly. MUSCULOSKELETAL: No joint swelling or deformity. EXTREMITIES: No cyanosis, clubbing, or pedal edema. NEUROLOGICAL: Gross neurological examination did not reveal any focal deficits. SKIN: No rashes. Dictation was produced using [facility] dictation software. please excuse any grammatical, word or spelling errors. Patient Condition at Discharge: Fair Plan - Discharge Summary Discharge Rx Participant: No New Discharge Prescriptions: Continue Ketoconazole 2% Cream [Nizoral 2%] 1 applic TOPICAL DAILY PRN PRN Reason: irritation Hydrocortisone Cream [Hydrocortisone 2.5% Cream] 1 applic TOPICAL BID PRN PRN Reason: irritation allopurinoL 300 mg PO DIRECTED Colchicine 0.6 mg PO DAILY PRN PRN Reason: gout Multivit-Min/FA/Lycopen/Lutein [Centrum Silver Tablet] 1 tab PO DIRECTED Warfarin [Coumadin] 2.5 mg PO SUMOTUTHFRSA #0 Amoxicillin 2,000 mg PO ONCE PRN PRN Reason: dental appointments lisinopriL [Zestril] 5 mg PO DIRECTED PRN PRN Reason: Blood Pressure - High Atorvastatin [Lipitor] 20 mg PO SUMOTUTHFRSA Discharge Medication List Amoxicillin 2,000 mg PO ONCE PRN 10/25/24 [History] Atorvastatin [Lipitor] 20 mg PO SUMOTUTHFRSA 10/25/24 [History] Colchicine 0.6 mg PO DAILY PRN 10/25/24 [History] Hydrocortisone Cream [Hydrocortisone 2.5% Cream] 1 applic TOPICAL BID PRN 10/25/24 [History] Ketoconazole 2% Cream [Nizoral 2%] 1 applic TOPICAL DAILY PRN 10/25/24 [History] Multivit-Min/FA/Lycopen/Lutein [Centrum Silver Tablet] 1 tab PO DIRECTED 10/25/24 [History] allopurinoL 300 mg PO DIRECTED 10/25/24 [History] lisinopriL [Zestril] 5 mg PO DIRECTED PRN 10/25/24 [History] Warfarin [Coumadin] 2.5 mg PO SUMOTUTHFRSA #0 10/29/24 [Rx] Follow up Appointment(s)/Referral(s): Vineet Pinto MD [STAFF PHYSICIAN] - 1 Week Aniket Angelo MD [Primary Care Provider] - 1-2 days Activity/Diet/Wound Care/Special Instructions: Patient told to skip Coumadin for next 3 doses and then check INR on Friday and resume depending upon INR value Discharge Disposition: HOME SELF-CARE
--- NOTE | 2024-10-29 14:47 | P.PN ---
Subjective Progress Note Date: 10/29/24 History of Present Illness: The patient is an 83-year-old male with a history of borderline hypertension who presented with diarrhea, black stool and symptoms of dyspnea. In the emergency room he was found to have an INR above 10, minimally elevated troponin and cardiology consultation was requested. He is usually active physically, has no exertional chest discomfort or significant dyspnea. He recently fell while shoveling snow and since that time he has been dyspneic with some symptoms of respiratory infection. For the last 3 days he noted black stool with diarrhea. He has been maintained on Coumadin for over 10 years. Initially he had DVT post knee surgery, was anticoagulated at that time but had recurrent DVT afterward and has been maintained on Coumadin, typically his INR is between 2 and 3 and has been stable. He has not taking any antibiotics recently. He has a history of hypertension but at times it is on the low side and does not require taking his lisinopril. He has no chest discomfort except after the fall, chest wall tenderness. He has no history of peripheral edema, PND or orthopnea. He denies any dizziness or palpitations. He has no history of documented obstructive CAD or CHF in the past. He is a non-smoker, stopped 22 years ago, he is prediabetic and hyperlipidemic. Medications: Lisinopril 5 mg daily, warfarin, atorvastatin 20 mg daily, colchicine Labs: On presentation INR above 10, potassium 5.5, BUN 28 and creatinine 1.79. Today his potassium is 4.2, BUN 32 and creatinine 1.14. His hemoglobin on admission was 16, down to 12.9 this morning. AST 124, ALT 65. His chest x-ray is suggestive of pneumonia with perihilar infiltrates. Troponin 0.183 with NT proBNP of 1200. EKG: Sinus mechanism with PACs, right bundle branch block Echo: shows EF of 50%, moderate septal hypertrophy, no major valvular abnormality 10/27/2024 Patient is seen and examined at bedside this a.m. He reports having shortness of breath and cough but reports feeling better as compared to yesterday. Heart rate 68 beats minute, sinus rhythm, BP 143/88 10/28/24 Patient is seen and examined. He states he is feeling fine. He states he had a bowel movement this morning but no blackness to it. No chest pain no wheezing. He states he has a little bit of a cough. Blood pressure 144/83, heart rate 79, pulse ox 96% on 2 L nasal cannula. Patient states that he will be leaving or plans to leave for [place] next Friday and will remain there for 4 months. Patient advised to have follow-up with thread singer while in [place]. 10/29/24 Patient seen and examined. Blood pressure 132/73, heart rate 82, pulse ox 92% on room air. INR is 4.0. Patient denies having shortness of breath no chest pain. He states he still has some cough and some sputum production. He states he has decided not to go to [place] on Friday and will follow-up in the office with Dr. Pinto. Physical Examination: 83-year-old male, alert oriented no apparent distress Head: Normocephalic. Eyes: Sclerae nonicteric. Neck: Good carotid upstroke, no bruit, no jugular venous distention. Lungs: Clear to auscultation. Heart: Regular rate and rhythm, S1-S2, no S3, no rub. No murmur. Abdomen: Soft nontender, positive bowel sounds no organomegaly. Extremities: No edema, intact distal pulses. Impression: 1. Probable pneumonia with abnormal chest x-ray. 2. Hypercoagulation 3. Acute GI bleed 4. Acute renal injury, resolved. 5. Mild troponin elevation could be related to the acute renal injury and pneumonia 6. Prior history of DVT, anticoagulated 7. History of hyperlipidemia 8. History of hypertension Plan: Continue Lipitor Hold Coumadin Patient will follow-up with Dr. Pinto in the office next week for outpatient stress testing Patient is cleared for discharge from cardiology perspective Nurse practitioner note has been reviewed, I agree with documented findings and plan of care. Patient was seen and examined. Objective - Vital Signs Vital signs: Vital Signs Temp 97.9 F 10/29/24 08:26 Pulse 76 10/29/24 09:38 Resp 16 10/29/24 08:26 BP 127/76 10/29/24 08:26 Pulse Ox 96 10/29/24 09:38 FiO2 21 10/28/24 15:18 Intake & Output 10/28/24 10/29/24 10/29/24 18:59 06:59 18:59 Intake Total 360 0 Output Total 400 500 Balance -40 -500 0 Weight 79.5 kg 77.2 kg Intake: Oral 360 0 Output: Urine 400 500 Other: Voiding Method Toilet Toilet # Bowel Movements 1 - Labs CBC & Chem 7: 10/29/24 06:15 10/29/24 06:15 Labs: Abnormal Lab Results - Last 24 Hours (Table) 10/27/24 10/28/24 10/29/24 Range/Units 12:03 10:14 06:15 RBC 4.14 L (4.30-5.90) m/uL Hgb 12.7 L (13.0-17.5) gm/dL Hct 38.8 L (39.0-53.0) % PT 37.3 H (10.0-12.5) sec INR 3.8 H (<1.2) Glucose (74-99) mg/dL Iron 29 L (65-175) UG/DL TIBC 148 L (228-460) UG/DL Transferrin 106.0 L (204.0-354.0) mg/dL AST (17-59) U/L ALT (4-49) U/L Albumin (3.5-5.0) g/dL 10/29/24 Range/Units 06:15 RBC (4.30-5.90) m/uL Hgb (13.0-17.5) gm/dL Hct (39.0-53.0) % PT (10.0-12.5) sec INR (<1.2) Glucose 137 H (74-99) mg/dL Iron (65-175) UG/DL TIBC (228-460) UG/DL Transferrin (204.0-354.0) mg/dL AST 79 H (17-59) U/L ALT 84 H (4-49) U/L Albumin 3.0 L (3.5-5.0) g/dL Microbiology - Last 24 Hours (Table) 10/25/24 11:39 Blood Culture - Preliminary Blood 10/26/24 10:27 Gram Stain - Final Sputum Sputum Culture - Final
--- NOTE | 2024-10-29 15:21 | P.PN ---
Subjective Progress Note Date: 10/29/24 Principal diagnosis: Pneumonia. 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 He presented here to the emergency room yesterday with complaints of shortness of breath and black liquidy stool. He had also developed generalized weakness. X-ray lateral perihilar reticular opacities. EKG reveals sinus rhythm with frequent PACs and a right bundle branch block. White count 10.1. Hemoglobin 12.9. Platelets 224. Sodium 136. Potassium 4.2. Bicarb 24. BUN 32. Creatinine 1.14. Glucose 123. AST 124. ALT 65. Troponin 0.200, 0.194. Procalcitonin 1.27. C-reactive protein 26.6. proBNP 1200. Viral screen negative. He is seen today in consultation in the emergency department. He is currently resting on a stretcher. Awake and alert in no acute distress. Maintaining O2 saturations in the 90s on 2 L/min per nasal cannula. He has been afebrile. Hemodynamically stable. Patient's presenting INR was greater than 10. He did receive vitamin K. Current INR 4.3. The patient is seen today October 27, 2024 in follow-up in the emergency depart ment. He is currently resting comfortably on a stretcher. Awake and alert in no acute distress. Maintaining O2 saturation in the 90s on 3 L/min per nasal cannula. Procalcitonin was 1.27. White count 7.4. Hemoglobin 12.4. Platelets 268. INR 3.5. Sodium 138. Potassium 5.0. Bicarb 27. BUN 24. Creatinine 1.05. Glucose 115. AST 108. A LT 66. He is continued on ceftriaxone and azithromycin. He remains on DuoNeb inhalations. Normal saline at KVO. The patient is seen today October 28, 2024 in follow-up on the selective care unit. He is currently resting comfortably in bed. Awake and alert in no acute distress. Maintaining O2 saturations in the 90s on 2 L/min per nasal cannula. Receiving normal saline at 20 mL/h. INR 3.8. He is continued on ceftriaxone. Procalcitonin was 1.27. Cultures have been negative. White count 5.7. Hemoglobin 12.0. Platelets 242. Sodium 139. Potassium 4.3. Bicarb 23. BUN 18. Creatinine 0.92. Glucose 126. AST 127. ALT 107. He remains on DuoNeb inhalations. Progress note dated October 29, 2024. The patient is seen today in room 384. He is on room air. The patient is not receiving any IV fluids. Labs, x-rays, and all medications are reviewed. The patient denies any significant shortness of breath, cough, wheezing, chest tigh tness, or phlegm production. Current labs include a white count 5.5, hemoglobin 12.7, hematocrit 38.8, and a platelet count of 377,000. PTT is 39.2. INR is 4. Sodium 139, potassium 4.6, chlorides 106, CO2 25, BUN 15, creatinine 0.88. Glucose is 137. AST is 79. ALT is 84. Chest x-ray is improved, particularly in the area of the left lower lobe. Objective - Vital Signs Vital signs: Vital Signs Temp 98.1 F 10/29/24 11:52 Pulse 80 10/29/24 12:57 Resp 16 10/29/24 11:52 BP 132/73 10/29/24 11:52 Pulse Ox 92 L 10/29/24 11:52 FiO2 21 10/28/24 15:18 Intake & Output 10/28/24 10/29/24 10/29/24 18:59 06:59 18:59 Intake Total 360 240 Output Total 400 500 Balance -40 -500 240 Weight 79.5 kg 77.2 kg Intake: Oral 360 240 Output: Urine 400 500 Other: Voiding Method Toilet Toilet Toilet # Bowel Movements 1 - Exam No acute distress, oriented 3. Currently on room air. HEENT examination is grossly unremarkable. Mucous membranes are moist. No oral lesions. Neck supple. Full range of motion. No adenopathy thyromegaly or neck vein distention. Cardiovascular examination reveals regular rhythm rate. S1-S2 normal. No S3 or S4. No discernible murmur noted. Lungs reveal clear breath sounds. Breath sounds are equal bilaterally. No adventitious lung sounds including wheezes rhonchi or crackles. Abdomen soft bowel sounds are heard. No masses or tenderness. Extremities are intact. No cyanosis clubbing or edema. Skin is without rash or lesion. Neurologic examination is brief but nonfocal. - Labs CBC & Chem 7: 10/29/24 06:15 10/29/24 06:15 Labs: Abnormal Lab Results - Last 24 Hours (Table) 10/29/24 10/29/24 10/29/24 Range/Units 06:15 06:15 10:05 RBC 4.14 L (4.30-5.90) m/uL Hgb 12.7 L (13.0-17.5) gm/dL Hct 38.8 L (39.0-53.0) % PT 39.2 H (10.0-12.5) sec INR 4.0 H (<1.2) Glucose 137 H (74-99) mg/dL AST 79 H (17-59) U/L ALT 84 H (4-49) U/L Albumin 3.0 L (3.5-5.0) g/dL Microbiology - Last 24 Hours (Table) 10/25/24 11:39 Blood Culture - Preliminary Blood Assessment and Plan Assessment: Acute hypoxic respiratory failure secondary to suspected community-acquired pneumonia. Coagulopathy with an INR greater than 10. Black watery stools secondary to above. Troponin leak. Hypertension. History of gout. Hyperlipidemia. History of right lower extremity DVT x 2. Plan: Plan dated October 29, 2024. The patient appears to be doing relatively well. The patient is currently not on any supplemental oxygen. Labs, x-rays, and medications are reviewed. The patient's chest x-ray is much improved. We will continue to follow the patient, make recommendations along the way. Prognosis is guarded. No additional recom mendations at this time. The patient's pulmonary status is stable. Time with Patient: Less than 30
== END 2024-10-29 13:55 | disposition home or self-care (01) | DRG 813 ==
LOC: EC 10:15 → 1SOBS 12:20 → 3SCARD 16:16
PROVIDERS: ADMIT Hospitalist; ATTEND Hospitalist
DX: D68.32 Hemorrhagic disorder due to extrinsic circulating anticoagulants (principal); J15.9 Unspecified bacterial pneumonia; J96.01 Acute respiratory failure with hypoxia; J44.0 Chronic obstructive pulmonary disease with (acute) lower respiratory infection; K92.2 Gastrointestinal hemorrhage, unspecified; E87.1 Hypo-osmolality and hyponatremia; N17.9 Acute kidney failure, unspecified; J44.1 Chronic obstructive pulmonary disease with (acute) exacerbation; E87.5 Hyperkalemia; R79.89 Other specified abnormal findings of blood chemistry; R19.7 Diarrhea, unspecified; E78.5 Hyperlipidemia, unspecified; I10 Essential (primary) hypertension; M10.9 Gout, unspecified; T45.515A Adverse effect of anticoagulants, initial encounter; I45.10 Unspecified right bundle-branch block; Z96.643 Presence of artificial hip joint, bilateral; Z79.01 Long term (current) use of anticoagulants; Z86.718 Personal history of other venous thrombosis and embolism; Z87.891 Personal history of nicotine dependence
CPT/HCPCS: 36415; 71045; 80053; 82607; 83540; 83550; 83605; 83735; 83880; 84100; 84145; 84484; 85025; 85027; 85610; 85652; 85730; 86140; 87040; 87070; 87205; 87449; 87636; 93005; 93306; 94640; 94760; 96361; 96365; 96366; 96367; 96375; 99291